=== PATIENT | male | born 1950 | race Caucasian/White ===

== ENCOUNTER → 2017-07-06 | Outpatient (CLI) | payer OTHER ==
[~2017-07-06] MED LIST: CIME-56 PO; CMD5 PO; OXYC80TA16 PO
--- NOTE | 2017-07-06 15:13 | DIAGNOSTIC IMAGING REPORT ---
CT LUNG SCREENING, LOW DOSE WITH COMPUTER-AIDED DETECTION (CAD) CLINICAL HISTORY: 67 years-old Male patient presents with history of tobacco abuse. Low-dose screening exam. COMPARISON STUDY: Portable chest radiograph 04/17/2009. CT DOSE: 69.09 mGycm TECHNIQUE: Low-dose helical CT was acquired without intravenous contrast from lung apices to bases and reconstructed at 2.5 mm every 2 mm. CAD was utilized for this study. A dose lowering technique was utilized adhering to the principles of ALARA. FINDINGS: No dominant thyroid nodule identified. No definite pathologic adenopathy of the chest. Calcified right hilar lymph nodes suggest prior granulomatous disease. Thoracic aorta is normal in course and caliber without aneurysm. Mild to moderate atherosclerotic plaquing of the aorta. Coronary arterial calcifications are seen within a three-vessel distribution. Aortic annular calcifications also noted. Moderate upper lobe predominant centrilobular emphysematous changes. To a lesser extent there are paraseptal emphysematous changes as well. Calcified granuloma of the lateral basal segment right lower lobe. Minimal dependent bibasilar atelectasis. Mild bilateral bronchial wall thickening suggests background bronchitis. Mild biapical pleural-parenchymal scarring. Central airways are patent. 6 mm pleural-based noncalcified solid pulmonary nodule is present within the right lower lobe on image 170 of series 3. No acute abnormality of the upper abdomen identified. Bones appear intact. There is mild age indeterminate anterior endplate wedging of the T7 vertebral body without associated retropulsion identified. IMPRESSION: 1. 6 mm pleural-based solid noncalcified pulmonary nodule of the right lower lobe. Follow-up guidelines are below. 2. Moderate centrilobular emphysema with bronchitis. 3. Mild age-indeterminate anterior endplate wedging of T7. 3. Evidence of prior granulomatous disease. Nodule 1 Category: 2 Nodule 1 Status: Baseline Nodule 1 Description: Solid Nodule 1 Lesion ID: 5 Nodule 1 Slice Number: 56 Nodule 1 Volume (mm3): 108 Nodule 1 [place] mm: 5.9 Nodule 1 [place] mm: 5.9 CAD FINDINGS: Overall Lung RADS Category: 2 Lung RADS Management Recommendation: Lung-RADS 2: Continue annual screening in 12 months. Lung RADS Follow Up Date: 2018-07-06 Lung RADS Nodule ID: 5 The above report was generated using voice recognition software. It may contain grammatical, syntax or spelling errors. Electronically signed by: Tevin Mullins M.D. 07/06/2017 3:11 PM Dictated Date/Time: 07/06/2017 2:52 PM
== END | disposition home or self-care (01) ==
LOC: C.CTS 13:40
PROVIDERS: ATTEND Internal Medicine
DX: Z87.891 Personal history of nicotine dependence (principal)

== ENCOUNTER 2021-08-26 18:43 | Inpatient (IN) ==
--- NOTE | 2021-08-26 19:09 | Emergency Department Note ---
Impression & Plan Weakness, Stroke-like symptoms, Slurred speech, Trouble swallowing ED Provider Note NAME: ELENA MILES AGE: 71 SEX: M : 1950 ARRIVES VIA: Walk-In INFORMANT: [Patient][family] ED PROVIDER(S): [Damian Alvarado MD] CHIEF COMPLAINT: Weakness HISTORY OF PRESENT ILLNESS: The patient is a 71-year-old male whose last known well time was last evening. This morning, he was weak and off balance and had a hard time walking. As the day has extended, he has gotten worse and has had some garbled and slurred speech. Patient denies any headache or shortness of breath. No fever. He states that he believes his speech is slurred because of the congestion in his throat. He states he is having a hard time swallowing although he is able to swallow saliva. There has been no one-sided weakness. It seems like this is weakness everywhere. He has not had recent cough or congestion. He is not vaccinated for COVID-19 or influenza. He does smoke tobacco. He was just started on amlodipine today. He had been to his doctor's office. REVIEW OF SYSTEMS: See HPI for pertinent positives and negatives. A total of ten systems were reviewed and were otherwise negative. PMHx/PSHx: See Below SOCIAL HISTORY: See Below. PHYSICAL EXAM: GENERAL: Patient is in no acute distress. HEENT: No acute trauma, normocephalic atraumatic, mucous membranes moist, no nasal congestion, no scleral icterus. No facial droop. No uvular edema, no throat erythema. NECK: No stridor, no adenopathy, no meningismus, trachea is midline. LUNGS: Clear to auscultation bilaterally when listening anterior no wheeze, no rhonchi, breath sounds equal. HEART: Without murmurs gallops or rubs, regular rate and rhythm. ABDOMEN: Soft, nontender, bowel sounds positive, no hernias, no peritonitis. EXTREMITIES: No cyanosis or edema, full range of motion of all the joints without pain or difficulty, no signs for acute trauma. NEUROLOGIC: Oriented x 3. The patient seemed to have a difficult time swallowing and his speech is a bit slurred. He does have some mild difficulty with left upper extremity cerebellar function. No extremity drift. SKIN: No rash, no jaundice, no diaphoresis. DIFFERENTIAL DIAGNOSIS: Infection, dehydration, metabolic abnormality, hypo/hyperglycemia, malignancy, food bolus, cervical soft tissue mass, COVID-19, influenza, electrolyte disturbance, anemia, hypoxia, cardiac sources, intracerebral event, toxicologic issues, stroke, TIA, as well as other pathologies. EMERGENCY DEPARTMENT COURSE/PROCEDURES: ECG: Indication was possible stroke. The ECG shows a normal sinus rhythm with some LVH. The rate is 69. There is some nonspecific ST change. No ST elevation. No PVCs. Potential old inferior infarct was noted. The QTc is 471. Continuous Cardiac Monitoring: An order was placed for continuous cardiac monitoring. The monitor shows a rate of 70 with normal sinus rhythm. Critical Care Note: I have personally spent 54 minutes of critical care time in the direct management of this patient. This includes bedside care, interpretation of diagnostic studies, and testing, discussion with consultants, patient, and family members, and other required patient management activities. This 54 minutes is in excess of all separately billable procedures. MEDICAL DECISION MAKING: There is a mild leukocytosis, this could be consistent with infection or the stress of his current situation. There is a normal hemoglobin and platelet count. No significant electrolyte abnormality or kidney failure. Lactic acid lev el is not elevated making sepsis less likely. No worrisome liver enzyme elevation. The patient appeared to be in a euthyroid state. Urinalysis does not show infection. Covid, influenza and RSV testing was negative. Chest film does not show pneumonia or CHF. Brain CT shows no acute bleed or mass-effect. Old strokes were seen. CT angio of the head and neck were performed. There was stenosis and plaque, no clot seen. On exam, the patient did have a little bit of cerebellar difficulty with the left upper extremity. His speech was thickened and he seemed to have a hard time swallowing. The patient was not a candidate for TPA as his symptoms have been ongoing all day, over 12 hours. The patient received IV saline, 500 cc. He was given IV hydralazine for his higher blood pressure. I spoke to the patient and his family. I do think further stroke work-up is warranted in the hospital. A stroke just not seen on CT could certainly explain his presentation today. I spoke with case management, the on-call hospitalist was consulted. Past Med/Surg History Medical History Duodenal ulcer History of CVA (cerebrovascular accident) Hypertension Hypothyroidism Surgical History H/O inguinal hernia repair H/O neck surgery Family History Sister Breast cancer Sister Breast cancer Denies family history of Ovarian cancer Prostate cancer Myocardial infarction Colorectal cancer Social History Smoking Status: Current every day smoker Tobacco Type: Cigarettes Age Started Using Tobacco: 8; packs per day: 1; Second Hand Exposure: No; Hx Alcohol Use: Yes (socially, rarely ) Hx Substance Use: No Preferred Language: Thai Visual Impairment: No Limitations Hearing Ability: Use of Hearing Aid marital status: Current Living Situation: Spouse current occupational status: employed current occupation: works at [employer] doing [employer] work Feels Safe at Home: Yes Childhood Exposure to Second-Hand Smoke: Yes Dental Care, Regularly: No Physical Activity Frequency: 3-4 Times per Week Seatbelt Use: always Sunscreen Use: No Allergies Allergies Allergy/AdvReac Type Severity Reaction Status Date / Time carbamazepine Allergy Unknown Unknown Verified 08/26/21 19:24 Home Meds Home Medications Medication Instructions Recorded Confirmed aspirin 500 mg tablet 500 mg PO BID PRN 08/26/21 08/26/21 Previous Rx's Medication Instructions Recorded amlodipine 5 mg tablet 5 mg PO DAILY #30 tab 08/26/21 Results & Data (ED) Vital Signs Vital Signs - 24 hr 08/26/21 18:44 08/26/21 19:03 08/26/21 19:07 Temperature 36.6 C Temperature Source Temporal Artery Scan Pulse Rate 70 Pulse Rate [Apical] 65 Respiratory Rate 18 18 Respiratory Effort / Characteristics Non-Labored Non-Labored Spontaneous Respiratory Depth Normal Normal Respiratory Pattern Regular Regular Blood Pressure 191/103 H Blood Pressure [Right Arm] 174/101 H Blood Pressure Mean 132 Blood Pressure Mean [Right Arm] 125 Blood Pressure Position [Right Arm] Semi-fowlers Pulse Oximetry 98 99 98 Oxygen Delivery Method Room Air Room Air Room Air Sepsis Recent Fever Within 48 Hours No Sepsis New/Unexplained Change in Mental Status No Sepsis Action Taken by Nursing No Action Required 08/26/21 19:45 08/26/21 21:04 Temperature Temperature Source Pulse Rate Pulse Rate [Apical] 65 68 Respiratory Rate 18 Respiratory Effort / Characteristics Non-Labored Spontaneous Respiratory Depth Normal Respiratory Pattern Regular Blood Pressure Blood Pressure [Right Arm] 171/90 H 174/90 H Blood Pressure Mean Blood Pressure Mean [Right Arm] 117 118 Blood Pressure Position [Right Arm] Semi-fowlers Pulse Oximetry 97 98 Oxygen Delivery Method Room Air Room Air Sepsis Recent Fever Within 48 Hours Sepsis New/Unexplained Change in Mental Status Sepsis Action Taken by Retirement Medications Current Medication List: was personally reviewed by me Laboratory Data Attestation: I reviewed the patient's lab results. Result diagrams: 08/26/21 19:03 08/26/21 19:03 Lab Results 08/26/21 08/26/21 08/26/21 Range/Units 19:03 19:03 19:10 WBC 13.11 H (4.8-10.8) K/uL RBC 5.17 (4.7-6.1) M/uL Hgb 15.5 (14.0-18.0) g/dL POC Hgb 16.0 (14.0-18.0) g/dl Hct 46.8 (42-52) % POC Hct 47 (42-52) % MCV 90.5 (80-100) fL MCH 30.0 (25-34) pg MCHC 33.1 (32-36) g/dL RDW Std Deviation 46.3 (36.4-46.3) fL RDW Coeff of Heidi 13.8 (11.5-14.5) % Plt Count 400 (130-400) K/uL MPV 11.5 H (7.4-10.4) fL Immature Gran % (Auto) 0.2 % Neut % (Auto) 74.5 % Lymph % (Auto) 11.4 % [place] % (Auto) 9.8 % Eos % (Auto) 3.5 % Baso % (Auto) 0.6 % Neut # (Auto) 9.77 H (1.4-6.5) K/uL Lymph # (Auto) 1.49 (1.2-3.4) K/uL [place] # (Auto) 1.28 H (0.11-0.59) K/uL Eos # (Auto) 0.46 (0-0.5) K/uL Baso # (Auto) 0.08 (0-0.2) K/uL Immature Gran # (Auto) 0.03 H (0.00-0.02) K/uL POC Sodium 141 (135-144) mmol/L Sodium 139 (136-145) mmol/L POC Potassium 3.6 (3.3-5.0) mmol/L Potassium 3.5 (3.5-5.1) mmol/L POC Chloride 102 (101-112) mmol/L Chloride 107 (98-107) mmol/L Carbon Dioxide 27 (21-32) mmol/L POC Total CO2 24 (24-31) mmol/L Anion Gap 5.0 (3-11) POC Anion Gap 19.0 (16-25) mmol/L POC BUN 14 (7-18) mg/dl BUN 15 (7-18) mg/dl Creatinine 0.92 (0.6-1.4) mg/dl POC Creatinine 0.8 (0.6-1.3) mg/dl Est Cr Clr Drug Dosing 72.8 ml/min Est GFR ( Amer) 96.0 ml/min Est GFR (Non-Af Amer) 82.8 ml/min BUN/Creatinine Ratio 15.8 (10-20) Glucose 113 H (70-99) mg/dl POC Glucose (other) 115 H (70-99) mg/dl Lactate (0.4-2.0) mmol/L Calcium 9.0 (8.5-10.1) mg/dl POC Ioniz Calcium Robert 1.15 (1.12-1.32) mmol/l Total Bilirubin 0.9 (0.2-1) mg/dl AST 16 (15-37) U/L ALT 22 (12-78) Alkaline Phosphatase 136 H (45-117) U/L Troponin I < 0.015 (0-0.045) ng/ml Total Protein 7.7 (6.4-8.2) gm/dl Albumin 3.9 (3.4-5.0) gm/dl Globulin 3.8 (2.5-4.0) gm/dl Albumin/Globulin Ratio 1.0 (0.9-2) TSH 1.280 (0.300-4.500) uIu/ml Urine Color Urine Appearance (Clear) Urine pH (4.5-7.5) Ur Specific [place] (1.000-1.030) Urine Protein (Negative) Urine Glucose (UA) (Negative) Urine Ketones (Negative) Urine Blood (Negative) Urine Nitrite (Negative) Urine Bilirubin (Negative) Urine Urobilinogen (Negative) Ur Leukocyte Esterase (Negative) SARS-CoV-2 (PCR) (Negative) Influenza Type A (PCR) (Neg) Influenza Type B (PCR) (Neg) RSV (RT-PCR) (Neg) 08/26/21 08/26/21 08/26/21 Range/Units 19:11 19:47 19:55 WBC (4.8-10.8) K/uL RBC (4.7-6.1) M/uL Hgb (14.0-18.0) g/dL POC Hgb (14.0-18.0) g/dl Hct (42-52) % POC Hct (42-52) % MCV (80-100) fL MCH (25-34) pg MCHC (32-36) g/dL RDW Std Deviation (36.4-46.3) fL RDW Coeff of Heidi (11.5-14.5) % Plt Count (130-400) K/uL MPV (7.4-10.4) fL Immature Gran % (Auto) % Neut % (Auto) % Lymph % (Auto) % [place] % (Auto) % Eos % (Auto) % Baso % (Auto) % Neut # (Auto) (1.4-6.5) K/uL Lymph # (Auto) (1.2-3.4) K/uL [place] # (Auto) (0.11-0.59) K/uL Eos # (Auto) (0-0.5) K/uL Baso # (Auto) (0-0.2) K/uL Immature Gran # (Auto) (0.00-0.02) K/uL POC Sodium (135-144) mmol/L Sodium (136-145) mmol/L POC Potassium (3.3-5.0) mmol/L Potassium (3.5-5.1) mmol/L POC Chloride (101-112) mmol/L Chloride (98-107) mmol/L Carbon Dioxide (21-32) mmol/L POC Total CO2 (24-31) mmol/L Anion Gap (3-11) POC Anion Gap (16-25) mmol/L POC BUN (7-18) mg/dl BUN (7-18) mg/dl Creatinine (0.6-1.4) mg/dl POC Creatinine (0.6-1.3) mg/dl Est Cr Clr Drug Dosing ml/min Est GFR ( Amer) ml/min Est GFR (Non-Af Amer) ml/min BUN/Creatinine Ratio (10-20) Glucose (70-99) mg/dl POC Glucose (other) (70-99) mg/dl Lactate 0.7 (0.4-2.0) mmol/L Calcium (8.5-10.1) mg/dl POC Ioniz Calcium Robert (1.12-1.32) mmol/l Total Bilirubin (0.2-1) mg/dl AST (15-37) U/L ALT (12-78) Alkaline Phosphatase (45-117) U/L Troponin I (0-0.045) ng/ml Total Protein (6.4-8.2) gm/dl Albumin (3.4-5.0) gm/dl Globulin (2.5-4.0) gm/dl Albumin/Globulin Ratio (0.9-2) TSH (0.300-4.500) uIu/ml Urine Color Yellow Urine Appearance Clear (Clear) Urine pH 7.5 (4.5-7.5) Ur Specific [place] 1.025 (1.000-1.030) Urine Protein Negative (Negative) Urine Glucose (UA) Negative (Negative) Urine Ketones Negative (Negative) Urine Blood Negative (Negative) Urine Nitrite Negative (Negative) Urine Bilirubin Negative (Negative) Urine Urobilinogen Negative (Negative) Ur Leukocyte Esterase Negative (Negative) SARS-CoV-2 (PCR) NEGATIVE (Negative) Influenza Type A (PCR) Negative (Neg) Influenza Type B (PCR) Negative (Neg) RSV (RT-PCR) Negative (Neg) Administered Medications Discontinued Medications Hydralazine HCl (Hydralazine Hcl 20 Mg/Ml Vial) 5 mg IV NOW STA Stop: 08/26/21 19:12 Last Admin: 08/26/21 19:31 Dose: 5 mg Documented by: [id number] Sodium Chloride (Nss) 500 mls @ 999 mls/hr IV .Q31M SATINDER Stop: 08/26/21 19:45 Last Infusion: 08/26/21 20:31 Dose: 0 mls/hr Documented by: [id number] Admin: 08/26/21 19:31 Dose: 999 mls/hr Documented by: [id number] Ioversol (Optiray 320 125ml) 117 ml IV ONCE ONE Stop: 08/26/21 19:23 Last Admin: 08/26/21 19:24 Dose: 117 ml Documented by: [id number] Imaging Data Radiologist's Impression: Chest X-Ray 08/26/21 19:03 XR chest 1V portable HISTORY: 71 years-old Male weakness acute weakness COMPARISON: CTA had and neck of same day, head CT 04/17/2009 TECHNIQUE: Portable AP view of the chest FINDINGS: Cardiac silhouette is enlarged. Emphysema with chronic interstitial coarsening. No pneumothorax, pleural effusion, airspace consolidation or overt pulmonary edema. Degenerative changes of the shoulders and spine. IMPRESSION: Emphysema without acute process. ACT 112: Negative or not required by law. The above report was generated using voice recognition software. It may contain grammatical, syntax or spelling errors. Electronically signed by: Sebastian Mullins M.D. 08/26/2021 8:[address] 08/26/21 19:03 CT head/brain wo con CLINICAL HISTORY: 71 years-old Male with weakness, speech slurred. Acutely altered mental status with weakness TECHNIQUE: Multiple axial CT images of the head were obtained without contrast. A dose lowering technique was utilized adhering to the principles of ALARA. COMPARISON: CTA head and neck of same day, head CT 04/28/2009 FINDINGS: No acute intracranial hemorrhage, midline shift, intracranial mass, hydrocephalus, territorial ischemia or abnormal extra-axial collection. Mild involutional changes. Cerebral vascular calcifications. Chronic appearing infarcts of the left caudate head and left lentiform nucleus. Tiny subcentimeter age-indeterminate lacunar infarcts of the right basal ganglia. White matter hypodensities suggest chronic microvascular ischemic disease. Chronic left cerebellar infarct. The calvarium is intact. The paranasal sinuses, mastoid air cells, and middle ear cavities are clear. IMPRESSION: 1. No acute intracranial hemorrhage, midline shift or acute territorial infarct. 2. Chronic appearing lacunar infarcts of the left basal ganglia with a few subcentimeter age-indeterminate lacunar infarcts of the right basal ganglia. These findings are new from the 2008 comparison. 3. Chronic left cerebellar infarct. ACT 112: Negative or not required by law. The above report was generated using voice recognition software. It may contain grammatical, syntax or spelling errors. Electronically signed by: Sebastian Mullins M.D. 08/26/2021 7:53 PM Head CTA 08/26/21 19:03 CT angio neck with con, CT angio head w con CLINICAL HISTORY: 71 years-old Male with stroke symptoms. Acute strokelike symptoms COMPARISON STUDY: Head CT of same day TECHNIQUE: Following the IV administration of 117 mL of Optiray, CT angiogram of the head and neck was performed from the aortic arch to the skull apex. Images are reviewed in the axial, sagittal, and coronal planes. 3-D MIPS images are created and assessed. IV contrast was administered without complication. All measurements were calculated based on NASCET criteria. A dose lowering technique was utilized adhering to the principles of ALARA. CT DOSE: 1150.97 mGy.cm FINDINGS: Three-vessel morphology of the thoracic aortic arch with moderate atherosc lerotic plaque. Patent innominate and imaged subclavian arteries. Atheromatous plaque of the common carotid arteries without high-grade stenosis. Extensive atherosclerotic plaque of the right carotid bulb results in less than 50% stenosis. 70% luminal narrowing of the supraclinoid right ICA on image 395 secondary to prominent calcified plaque. Extensive atherosclerotic plaque of the left carotid bulb and proximal left ICA results in 60% luminal narrowing on image 194. Moderate luminal narrowing of the cavernous segment left ICA secondary to calcified plaque. Mild multifocal luminal narrowing of the middle cerebral arteries. Anterior cerebral arteries are patent. The right vertebral artery is dominant. Multifocal high-grade stenosis involves the V4 segment of the right vertebral artery, most pronounced distally just proximal to the basilar artery. The V1 and V2 segments of the left vertebral artery are suboptimally visualized secondary to opacified adjacent venous structures. Moderate luminal narrowing of the V2 segment the level of C6 on image 151 with high-grade stenosis at the level of C3-C4. There is irregularity of the distal V2 segment left vertebral artery extending into the C3 segment with diminished flow. There is occlusion of the distal V3 and V4 segments. Multifocal high-grade stenoses of the basilar and posterior cerebral arteries. Distal aspect of the right posterior cerebral arteries difficult to visualize. The cerebral venous sinuses are patent. There is no abnormal intracranial enhancement. Craniotomy changes of the right occiput. Chronic infarct of the left cerebellar hemisphere. Emphysema. No pneumothorax. Medial deviation of the left vocal fold without discrete mass identified. Degenerative changes of the cervical spine. Developmentally bony fusion involves the posterior arch of C1. IMPRESSION: 1. Extensive atherosclerotic plaque of the carotid bulbs results in less than 50% stenosis on the right with approximately 60% luminal narrowing of the proximal cervical segment left ICA. 2. 70% stenosis of the supraclinoid segment of the right ICA. 3. Multifocal high-grade stenoses of the bilateral vertebral arteries, basilar and posterior cerebral arteries. 4. Irregularity with diminished flow of the distal V2 and V3 segments of the left vertebral artery with occlusion of the mid to distal V3 and V4 segments. Underlying arterial dissection would be difficult to exclude. These findings are age-indeterminate. 5. Emphysema. ACT 112: Negative or not required by law. The above report was generated using voice recognition software. It may contain grammatical, syntax or spelling errors. Electronically signed by: Sebastian Mullins M.D. 08/26/2021 8:20 PM Neck CTA 08/26/21 19:03 CT angio neck with con, CT angio head w con CLINICAL HISTORY: 71 years-old Male with stroke symptoms. Acute strokelike symptoms COMPARISON STUDY: Head CT of same day TECHNIQUE: Following the IV administration of 117 mL of Optiray, CT angiogram of the head and neck was performed from the aortic arch to the skull apex. Images are reviewed in the axial, sagittal, and coronal planes. 3-D MIPS images are created and assessed. IV contrast was administered without complication. All measurements were calculated based on NASCET criteria. A dose lowering technique was utilized adhering to the principles of ALARA. CT DOSE: 1150.97 mGy.cm FINDINGS: Three-vessel morphology of the thoracic aortic arch with moderate atherosclerotic plaque. Patent innominate and imaged subclavian arteries. Atheromatous plaque of the common carotid arteries without high-grade stenosis. Extensive atherosclerotic plaque of the right carotid bulb results in less than 50% stenosis. 70% luminal narrowing of the supraclinoid right ICA on image 395 secondary to prominent calcified plaque. Extensive atherosclerotic plaque of the left carotid bulb and proximal left ICA results in 60% luminal narrowing on image 194. Moderate luminal narrowing of the cavernous segment left ICA secondary to calcified plaque. Mild multifocal luminal narrowing of the middle cerebral arteries. Anterior cerebral arteries are patent. The right vertebral artery is dominant. Multifocal high-grade stenosis involves the V4 segment of the right vertebral artery, most pronounced distally just proximal to the basilar artery. The V1 and V2 segments of the left vertebral artery are suboptimally visualized secondary to opacified adjacent venous structures. Moderate luminal narrowing of the V2 segment the level of C6 on im age 89 with high-grade stenosis at the level of C3-C4. There is irregularity of the distal V2 segment left vertebral artery extending into the C3 segment with diminished flow. There is occlusion of the distal V3 and V4 segments. Multifocal high-grade stenoses of the basilar and posterior cerebral arteries. Distal aspect of the right posterior cerebral arteries difficult to visualize. The cerebral venous sinuses are patent. There is no abnormal intracranial enhancement. Craniotomy changes of the right occiput. Chronic infarct of the left cerebellar hemisphere. Emphysema. No pneumothorax. Medial deviation of the left vocal fold without discrete mass identified. Degenerative changes of the cervical spine. Developmentally bony fusion involves the posterior arch of C1. IMPRESSION: 1. Extensive atherosclerotic plaque of the carotid bulbs results in less than 50% stenosis on the right with approximately 60% luminal narrowing of the proximal cervical segment left ICA. 2. 70% stenosis of the supraclinoid segment of the right ICA. 3. Multifocal high-grade stenoses of the bilateral vertebral arteries, basilar and posterior cerebral arteries. 4. Irregularity with diminished flow of the distal V2 and V3 segments of the left vertebral artery with occlusion of the mid to distal V3 and V4 segments. Underlying arterial dissection would be difficult to exclude. These findings are age-indeterminate. 5. Emphysema. ACT 112: Negative or not required by law. The above report was generated using voice recognition software. It may contain grammatical, syntax or spelling errors. Electronically signed by: Sebastian Mullins M.D. 08/26/2021 8:20 PM Discharge Plan Visit Data Chief Complaint: Stroke Alert Stated Complaint: STROKE SYMPTOMS ED Provider: Damian Alvarado Discharge Problem: Weakness, Stroke-like symptoms, Slurred speech, Trouble swallowing Patient Disposition: Admitted As Inpatient Condition: Fair
[2021-08-26] MEDS ORDERED: hydrALAZINE HCL 20 MG/ML VIAL IV STA (19:11)
[2021-08-26] MEDS ORDERED: SODIUM CHLORIDE 0.9% 500 ML IV SCH (19:15)
[2021-08-26 19:22] LABS: iSTAT Creatinine 0.8 mg/dl (0.6-1.3); iSTAT Ionized Calcium 1.15 mmol/l (1.12-1.32); iSTAT Potassium 3.6 mmol/L (3.3-5.0)
[2021-08-26] MEDS ORDERED: OPTIRAY 320 125ml IV ONE (19:22)
[2021-08-26 19:28] LABS: Basophils # (auto) 0.08 K/uL (0-0.2); Basophils % (auto) 0.6 %; Eosinophils # (auto) 0.46 K/uL (0-0.5); Eosinophils % (auto) 3.5 %; Hematocrit (blood only) 46.8 % (42-52); Hemoglobin 15.5 g/dL (14.0-18.0); Immature Granulocytes # (auto) 0.03 K/uL (0.00-0.02); Immature Granulocytes % (auto) 0.2 %; Lymphocytes # (auto) 1.49 K/uL (1.2-3.4); Lymphocytes % (auto) 11.4 %; Mean Corpuscular Hgb Conc 33.1 g/dL (32-36); Mean Corpuscular Volume 90.5 fL (80-100); Mean Platelet Volume 11.5 fL (7.4-10.4); Monocytes # (auto) 1.28 K/uL (0.11-0.59); Monocytes % (auto) 9.8 %; Neutrophils # (auto) 9.77 K/uL (1.4-6.5); Neutrophils % (auto) 74.5 %; Platelet Count 400 K/uL (130-400); RDW Coefficient of Variation 13.8 % (11.5-14.5); RDW Standard Deviation 46.3 fL (36.4-46.3); Red Blood Count 5.17 M/uL (4.7-6.1); White Blood Count 13.11 K/uL (4.8-10.8)
[2021-08-26 19:40] LABS: Alanine Aminotransferase 22 (12-78); Albumin Level 3.9 gm/dl (3.4-5.0); Aspartate Aminotransferase 16 U/L (15-37); BUN Creatinine Ratio 15.8 (10-20); Blood Urea Nitrogen 15 mg/dl (7-18); Carbon Dioxide 27 mmol/L (21-32); Chloride 107 mmol/L (98-107); Creatinine Clr Calc Pharmacy 72.8 ml/min; Est GFR (Non-African American) 82.8 ml/min; Glucose 113 mg/dl (70-99); Potassium 3.5 mmol/L (3.5-5.1); Sodium 139 mmol/L (136-145)
[2021-08-26 19:51] LABS: Alkaline Phosphatase 136 U/L (45-117); Bilirubin,Total 0.9 mg/dl (0.2-1); Globulin 3.8 gm/dl (2.5-4.0); Total Protein 7.7 gm/dl (6.4-8.2); Troponin I < 0.015 ng/ml (0-0.045)
--- NOTE | 2021-08-26 19:54 | CT Scan Report ---
CT head/brain wo con CLINICAL HISTORY: 71 years-old Male with weakness, speech slurred. Acutely altered mental status wit h weakness TECHNIQUE: Multiple axial CT images of the head were obtained without contrast. A dose lowering tech nique was utilized adhering to the principles of ALARA. COMPARISON: CTA head and neck of same day, head CT 04/28/2009 FINDINGS: No acute intracranial hemorrhage, midline shift, intracranial mass, hydrocephalus, territorial ischem ia or abnormal extra-axial collection. Mild involutional changes. Cerebral vascular calcifications. C hronic appearing infarcts of the left caudate head and left lentiform nucleus. Tiny subcentimeter age -indeterminate lacunar infarcts of the right basal ganglia. White matter hypodensities suggest chroni c microvascular ischemic disease. Chronic left cerebellar infarct. The calvarium is intact. The paranasal sinuses, mastoid air cells, and middle ear cavities are clear . IMPRESSION: 1. No acute intracranial hemorrhage, midline shift or acute territorial infarct. 2. Chronic appearing lacunar infarcts of the left basal ganglia with a few subcentimeter age-indeterm inate lacunar infarcts of the right basal ganglia. These findings are new from the 2008 comparison. 3. Chronic left cerebellar infarct. ACT 112: Negative or not required by law. The above report was generated using voice recognition software. It may contain grammatical, syntax o r spelling errors. Electronically signed by: Sebastian Mullins M.D. 08/26/2021 7:53 PM
[2021-08-26 20:12] LABS: Influenza A virus by PCR Negative (Neg); Influenza B virus by PCR Negative (Neg); RSV by PCR Negative (Neg); SARS CoV2 RNA(COVID-19) InHosp NEGATIVE (Negative)
[2021-08-26 20:20] LABS: Appearance Urine Clear (Clear); Bilirubin Urine Negative (Negative); Blood Urine Negative (Negative); Color Urine Yellow; Glucose Urine UA Negative (Negative); Ketones Urine Negative (Negative); Leukocyte Esterase Urine Negative (Negative); Nitrite Urine Negative (Negative); Protein Urine Negative (Negative); Specific Gravity Urine 1.025 (1.000-1.030); Urobilinogen Urine Negative (Negative); pH Urine 7.5 (4.5-7.5)
--- NOTE | 2021-08-26 20:21 | CT Scan Report ---
CT angio neck with con, CT angio head w con CLINICAL HISTORY: 71 years-old Male with stroke symptoms. Acute strokelike symptoms COMPARISON STUDY: Head CT of same day TECHNIQUE: Following the IV administration of 117 mL of Optiray, CT angiogram of the head and neck wa s performed from the aortic arch to the skull apex. Images are reviewed in the axial, sagittal, and c oronal planes. 3-D MIPS images are created and assessed. IV contrast was administered without complic ation. All measurements were calculated based on NASCET criteria. A dose lowering technique was util ized adhering to the principles of ALARA. CT DOSE: 1150.97 mGy.cm FINDINGS: Three-vessel morphology of the thoracic aortic arch with moderate atherosclerotic plaque. Patent inno minate and imaged subclavian arteries. Atheromatous plaque of the common carotid arteries without hig h-grade stenosis. Extensive atherosclerotic plaque of the right carotid bulb results in less than 50% stenosis. 70% luminal narrowing of the supraclinoid right ICA on image 395 secondary to prominent ca lcified plaque. Extensive atherosclerotic plaque of the left carotid bulb and proximal left ICA resul ts in 60% luminal narrowing on image 194. Moderate luminal narrowing of the cavernous segment left IC A secondary to calcified plaque. Mild multifocal luminal narrowing of the middle cerebral arteries. A nterior cerebral arteries are patent. The right vertebral artery is dominant. Multifocal high-grade stenosis involves the V4 segment of the right vertebral artery, most pronounced distally just proximal to the basilar artery. The V1 and V2 segments of the left vertebral artery are suboptimally visualized secondary to opacified adjacent zaynab ous structures. Moderate luminal narrowing of the V2 segment the level of C6 on image 151 with high-g rade stenosis at the level of C3-C4. There is irregularity of the distal V2 segment left vertebral ar aleksandr extending into the C3 segment with diminished flow. There is occlusion of the distal V3 and V4 s egments. Multifocal high-grade stenoses of the basilar and posterior cerebral arteries. Distal aspect of the right posterior cerebral arteries difficult to visualize. The cerebral venous sinuses are pat ent. There is no abnormal intracranial enhancement. Craniotomy changes of the right occiput. Chronic infarct of the left cerebellar hemisphere. Emphysema . No pneumothorax. Medial deviation of the left vocal fold without discrete mass identified. Degenera tive changes of the cervical spine. Developmentally bony fusion involves the posterior arch of C1. IMPRESSION: 1. Extensive atherosclerotic plaque of the carotid bulbs results in less than 50% stenosis on the rig ht with approximately 60% luminal narrowing of the proximal cervical segment left ICA. 2. 70% stenosis of the supraclinoid segment of the right ICA. 3. Multifocal high-grade stenoses of the bilateral vertebral arteries, basilar and posterior cerebral arteries. 4. Irregularity with diminished flow of the distal V2 and V3 segments of the left vertebral artery wi th occlusion of the mid to distal V3 and V4 segments. Underlying arterial dissection would be difficu lt to exclude. These findings are age-indeterminate. 5. Emphysema. ACT 112: Negative or not required by law. The above report was generated using voice recognition software. It may contain grammatical, syntax o r spelling errors. Electronically signed by: Sebastian Mullins M.D. 08/26/2021 8:20 PM
--- NOTE | 2021-08-26 20:23 | XRay Report ---
XR chest 1V portable HISTORY: 71 years-old Male weakness acute weakness COMPARISON: CTA had and neck of same day, head CT 04/17/2009 TECHNIQUE: Portable AP view of the chest FINDINGS: Cardiac silhouette is enlarged. Emphysema with chronic interstitial coarsening. No pneumothorax, pleu ral effusion, airspace consolidation or overt pulmonary edema. Degenerative changes of the shoulders and spine. IMPRESSION: Emphysema without acute process. ACT 112: Negative or not required by law. The above report was generated using voice recognition software. It may contain grammatical, syntax o r spelling errors. Electronically signed by: Sebastian Mullins M.D. 08/26/2021 8:21 PM
--- NOTE | 2021-08-26 20:40 | History & Physical Report ---
Date of Service August 26, 2021 Assessment & Plan (1) Stroke-like symptoms: Plan: 71 yo M with hx multiple CVAs brought to ER and admitted for concern for new CVA. Stroke-like symptoms - outside of window for tpA given last known well >12 hours prior, no exact onset of sx - CTA neck/head showing severe stenosis of multiple arteries as above, multiple prior infarcts, no acute infarct - lipid, a1c pending. extensive smoking hx - not on daily antiplatelet, statin. --> Started on asa 81, atorvastatin 80 mg on admission. - speech consult, pt, ot, - neuro checks - neuro consult for extensive stroke hx -- query regarding initiating asa + plavix given high risk for CVA - permissive HTN - MRI in AM HTN - started on amlodipine 5 mg daily earlier today - allow permissive HTN for first 24 hours of admission - will likely need additional medications for control going forward DVT ppx: heparin sq Q12 FEN/GI: NPO pending speech eval Code Status: DNR/DNI Dispo: Med/Tele. may require short term rehab pending PT -- lives at home with who is also frail/ill (2) Slurred speech: (3) Trouble swallowing: (4) Hypothyroidism: (5) Hypertension: (6) History of CVA (cerebrovascular accident): (7) COPD (chronic obstructive pulmonary disease): History of Present Illness Primary Care Provider: Freddy Huizar MD 71 yo M with hx multiple CVAs, COPD, BPH who presents to ER with his son for acute onset trouble swallowing and ambulatory dysfunction. last known well was the night of 08/25. States he had trouble swallowing solid food in the AM, but didn't have any issue with soft foods. Also attests to trouble swallowing liquids. Has some pain with swallowing. Also concerned about new trouble walking. Says he's had issues with walking due to foot injuries, but now has trouble moving his legs to walk properly. Denies focal weakness, sensory loss, numbness/tingling. Unsure who he previously saw for neurology. Per med rec, he was taking 500 mg Aspirin daily after his foot surgery, but says he hasn't taken it for about a month. Denies any personal hx of HLD, Dm2. recently dx'd with HTN and started on amlodipine 5 mg today. 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 Allergies Allergy/AdvReac Type Severity Reaction Status Date / Time carbamazepine Allergy Unknown Unknown Verified 08/26/21 19:24 Home Medications Medication Instructions Recorded Confirmed Type amlodipine 5 mg tablet 5 mg PO DAILY #30 tab 08/26/21 08/26/21 Rx aspirin 500 mg tablet 500 mg PO BID PRN 08/26/21 08/26/21 History Past Med/Surg History Medical History Duodenal ulcer History of CVA (cerebrovascular accident) Hypertension Hypothyroidism Surgical History H/O inguinal hernia repair H/O neck surgery Family History Sister Breast cancer Sister Breast cancer Denies family history of Ovarian cancer Prostate cancer Myocardial infarction Colorectal cancer Social History Smoking Status: Current every day smoker Tobacco Type: Cigarettes Age Started Using Tobacco: 8; packs per day: 1; Second Hand Exposure: No; Hx Alcohol Use: No Hx Substance Use: No Preferred Language: Albanian Visual Impairment: No Limitations Hearing Ability: Use of Hearing Aid Beliefs That Will Affect Care: None marital status: Current Living Situation: Spouse current occupational status: employed current occupation: works at [employer] doing [employer] work Feels Safe at Home: Yes Safety Concerns: Feels Safe At This Time Childhood Exposure to Second-Hand Smoke: Yes Dental Care, Regularly: No Physical Activity Frequency: 3-4 Times per Week Seatbelt Use: always Sunscreen Use: No Assistive Devices: None Review of Systems Review of Systems: All systems reviewed & are unremarkable except as noted in Subjective Physical Exam Physical Exam: Constitutional: in NAD, sitting up in bed Face: R facial droop (chronic) Eyes: EOMI, pupils equal and reactive bilaterally, no scleral icterus, no nystagmus Cardiac: RRR, no murmurs, gallops or rubs. Normal S1, S2 Pulm: CTA BL, no wheezes, rhonchi, crackles or rubs, moving air well throughout both lungs Abd: soft, nontender, nondistended, normal bowel sounds, no rebound or guarding Extremities: 2+ peripheral pulses, no edema Neuro: 5/5 strength in upper and lower extremities, no sensory loss, a& ox3 Results & Data Results & Data ([facility]) Vital Signs (Past 12 Hours) Vital Signs Temp Pulse Pulse Resp BP BP Pulse Ox 08/26/21 19:45 65 18 171/90 H 97 08/26/21 19:07 65 18 174/101 H 98 08/26/21 19:03 99 08/26/21 18:44 36.6 C 70 18 191/103 H 98 Laboratory Results Laboratory Results WBC 13.11 K/uL (4.8-10.8) H 08/26/21 19:03 RBC 5.17 M/uL (4.7-6.1) 08/26/21 19:03 Hgb 15.5 g/dL (14.0-18.0) 08/26/21 19:03 POC Hgb 16.0 g/dl (14.0-18.0) 08/26/21 19:10 Hct 46.8 % (42-52) 08/26/21 19:03 POC Hct 47 % (42-52) 08/26/21 19:10 MCV 90.5 fL (80-100) 08/26/21 19:03 MCH 30.0 pg (25-34) 08/26/21 19:03 MCHC 33.1 g/dL (32-36) 08/26/21 19:03 RDW Std Deviation 46.3 fL (36.4-46.3) 08/26/21 19:03 RDW Coeff of Heidi 13.8 % (11.5-14.5) 08/26/21 19:03 Plt Count 400 K/uL (130-400) 08/26/21 19:03 MPV 11.5 fL (7.4-10.4) H 08/26/21 19:03 Immature Gran % (Auto) 0.2 % 08/26/21 19:03 Neut % (Auto) 74.5 % 08/26/21 19:03 Lymph % (Auto) 11.4 % 08/26/21 19:03 [place] % (Auto) 9.8 % 08/26/21 19:03 Eos % (Auto) 3.5 % 08/26/21 19:03 Baso % (Auto) 0.6 % 08/26/21 19:03 Neut # (Auto) 9.77 K/uL (1.4-6.5) H 08/26/21 19:03 Lymph # (Auto) 1.49 K/uL (1.2-3.4) 08/26/21 19:03 [place] # (Auto) 1.28 K/uL (0.11-0.59) H 08/26/21 19:03 Eos # (Auto) 0.46 K/uL (0-0.5) 08/26/21 19:03 Baso # (Auto) 0.08 K/uL (0-0.2) 08/26/21 19:03 Immature Gran # (Auto) 0.03 K/uL (0.00-0.02) H 08/26/21 19:03 POC Sodium 141 mmol/L (135-144) 08/26/21 19:10 Sodium 139 mmol/L (136-145) 08/26/21 19:03 POC Potassium 3.6 mmol/L (3.3-5.0) 08/26/21 19:10 Potassium 3.5 mmol/L (3.5-5.1) 08/26/21 19:03 POC Chloride 102 mmol/L (101-112) 08/26/21 19:10 Chloride 107 mmol/L (98-107) 08/26/21 19:03 Carbon Dioxide 27 mmol/L (21-32) 08/26/21 19:03 POC Total CO2 24 mmol/L (24-31) 08/26/21 19:10 Anion Gap 5.0 (3-11) 08/26/21 19:03 POC Anion Gap 19.0 mmol/L (16-25) 08/26/21 19:10 POC BUN 14 mg/dl (7-18) 08/26/21 19:10 BUN 15 mg/dl (7-18) 08/26/21 19:03 Creatinine 0.92 mg/dl (0.6-1.4) 08/26/21 19:03 POC Creatinine 0.8 mg/dl (0.6-1.3) 08/26/21 19:10 Est Cr Clr Drug Dosing 72.8 ml/min 08/26/21 19:03 Est GFR ( Amer) 96.0 ml/min 08/26/21 19:03 Est GFR (Non-Af Amer) 82.8 ml/min 08/26/21 19:03 BUN/Creatinine Ratio 15.8 (10-20) 08/26/21 19:03 Glucose 113 mg/dl (70-99) H 08/26/21 19:03 POC Glucose (other) 115 mg/dl (70-99) H 08/26/21 19:10 Lactate 0.7 mmol/L (0.4-2.0) 08/26/21 19:47 Calcium 9.0 mg/dl (8.5-10.1) 08/26/21 19:03 POC Ioniz Calcium Robert 1.15 mmol/l (1.12-1.32) 08/26/21 19:10 Total Bilirubin 0.9 mg/dl (0.2-1) 08/26/21 19:03 AST 16 U/L (15-37) 08/26/21 19:03 ALT 22 (12-78) 08/26/21 19:03 Alkaline Phosphatase 136 U/L (45-117) H 08/26/21 19:03 Troponin I < 0.015 ng/ml (0-0.045) 08/26/21 19:03 Total Protein 7.7 gm/dl (6.4-8.2) 08/26/21 19:03 Albumin 3.9 gm/dl (3.4-5.0) 08/26/21 19:03 Globulin 3.8 gm/dl (2.5-4.0) 08/26/21 19:03 Albumin/Globulin Ratio 1.0 (0.9-2) 08/26/21 19:03 TSH 1.280 uIu/ml (0.300-4.500) 08/26/21 19:03 Urine Color Yellow 08/26/21: Urine Appearance Clear (Clear) 08/26/21: Urine pH 7.5 (4.5-7.5) 08/26/21: Ur Specific Disney 1.025 (1.000-1.030) 08/26/21: Urine Protein Negative (Negative) 08/26/21: Urine Glucose (UA) Negative (Negative) 12/10/21 19:55 Urine Ketones Negative (Negative) 08/26/21 19:55 Urine Blood Negative (Negative) 08/26/21 19:55 Urine Nitrite Negative (Negative) 08/26/21 19:55 Urine Bilirubin Negative (Negative) 08/26/21 19:55 Urine Urobilinogen Negative (Negative) 08/26/21 19:55 Ur Leukocyte Esterase Negative (Negative) 08/26/21 19:55 SARS-CoV-2 (PCR) NEGATIVE (Negative) 08/26/21 19:11 Influenza Type A (PCR) Negative (Neg) 08/26/21 19:11 Influenza Type B (PCR) Negative (Neg) 08/26/21 19:11 RSV (RT-PCR) Negative (Neg) 08/26/21 19:11 Impressions Chest X-Ray 08/26/21 19:03 XR chest 1V portable HISTORY: 71 years-old Male weakness acute weakness COMPARISON: CTA had and neck of same day, head CT 04/17/2009 TECHNIQUE: Portable AP view of the chest FINDINGS: Cardiac silhouette is enlarged. Emphysema with chronic interstitial coarsening. No pneumothorax, pleural effusion, airspace consolidation or overt pulmonary edema. Degenerative changes of the shoulders and spine. IMPRESSION: Emphysema without acute process. ACT 112: Negative or not required by law. The above report was generated using voice recognition software. It may contain grammatical, syntax or spelling errors. Electronically signed by: Sebastian Mullins M.D. 08/26/2021 8:[address] 08/26/21 19:03 CT head/brain wo con CLINICAL HISTORY: 71 years-old Male with weakness, speech slurred. Acutely altered mental status with weakness TECHNIQUE: Multiple axial CT images of the head were obtained without contrast. A dose lowering technique was utilized adhering to the principles of ALARA. COMPARISON: CTA head and neck of same day, head CT 04/28/2009 FINDINGS: No acute intracranial hemorrhage, midline shift, intracranial mass, hydrocephalus, territorial ischemia or abnormal extra-axial collection. Mild involutional changes. Cerebral vascular calcifications. Chronic appearing infarcts of the left caudate head and left lentiform nucleus. Tiny subcentimeter age-indeterminate lacunar infarcts of the right basal ganglia. White matter hypodensities suggest chronic microvascular ischemic disease. Chronic left cerebellar infarct. The calvarium is intact. The paranasal sinuses, mastoid air cells, and middle ear cavities are clear. IMPRESSION: 1. No acute intracranial hemorrhage, midline shift or acute territorial infarct. 2. Chronic appearing lacunar infarcts of the left basal ganglia with a few subcentimeter age-indeterminate lacunar infarcts of the right basal ganglia. These findings are new from the 2008 comparison. 3. Chronic left cerebellar infarct. ACT 112: Negative or not required by law. The above report was generated using voice recognition software. It may contain grammatical, syntax or spelling errors. Electronically signed by: Sebastian Mullins M.D. 08/26/2021 7:53 PM Head CTA 08/26/21 19:03 CT angio neck with con, CT angio head w con CLINICAL HISTORY: 71 years-old Male with stroke symptoms. Acute strokelike symptoms COMPARISON STUDY: Head CT of same day TECHNIQUE: Following the IV administration of 117 mL of Optiray, CT angiogram of the head and neck was performed from the aortic arch to the skull apex. Images are reviewed in the axial, sagittal, and coronal planes. 3-D MIPS images are created and assessed. IV contrast was administered without complication. All measurements were calculated based on NASCET criteria. A dose lowering technique was utilized adhering to the principles of ALARA. CT DOSE: 1150.97 mGy.cm FINDINGS: Three-vessel morphology of the thoracic aortic arch with moderate atherosclerotic plaque. Patent innominate and imaged subclavian arteries. Atheromatous plaque of the common carotid arteries without high-grade stenosis. Extensive atherosclerotic plaque of the right carotid bulb results in less than 50% stenosis. 70% luminal narrowing of the supraclinoid right ICA on image 395 secondary to prominent calcified plaque. Extensive atherosclerotic plaque of the left carotid bulb and proximal left ICA results in 60% luminal narrowing on image 194. Moderate luminal narrowing of the cavernous segment left ICA secondary to calcified plaque. Mild multifocal luminal narrowing of the middle cerebral arteries. Anterior cerebral arteries are patent. The right vertebral artery is dominant. Multifocal high-grade stenosis involves the V4 segment of the right vertebral artery, most pronounced distally just proximal to the basilar artery. The V1 and V2 segments of the left vertebral artery are suboptimally visualized secondary to opacified adjacent venous structures. Moderate luminal narrowing of the V2 segment the level of C6 on image 151 with high-grade stenosis at the level of C3-C4. There is irregularity of the distal V2 segment left vertebral artery extending into the C3 segment with diminished flow. There is occlusion of the distal V3 and V4 segments. Multifocal high-grade stenoses of the basilar and posterior cerebral arteries. Distal aspect of the right posterior cerebral arteries difficult to visualize. The cerebral venous sinuses are patent. There is no abnormal intracranial enhancement. Craniotomy changes of the right occiput. Chronic infarct of the left cerebellar hemisphere. Emphysema. No pneumothorax. Medial deviation of the left vocal fold without discrete mass identified. Degenerative changes of the cervical spine. Developmentally bony fusion involves the posterior arch of C1. IMPRESSION: 1. Extensive atherosclerotic plaque of the carotid bulbs results in less than 50% stenosis on the right with approximately 60% luminal narrowing of the proximal cervical segment left ICA. 2. 70% stenosis of the supraclinoid segment of the right ICA. 3. Multifocal high-grade stenoses of the bilateral vertebral arteries, basilar and posterior cerebral arteries. 4. Irregularity with diminished flow of the distal V2 and V3 segments of the left vertebral artery with occlusion of the mid to distal V3 and V4 segments. Underlying arterial dissection would be difficult to exclude. These findings are age-indeterminate. 5. Emphysema. ACT 112: Negative or not required by law. The above report was generated using voice recognition software. It may contain grammatical, syntax or spelling errors. Electronically signed by: Sebastian Mullins M.D. 08/26/2021 8:20 PM Neck CTA 08/26/21 19:03 CT angio neck with con, CT angio head w con CLINICAL HISTORY: 71 years-old Male with stroke symptoms. Acute strokelike symptoms COMPARISON STUDY: Head CT of same day TECHNIQUE: Following the IV administration of 117 mL of Optiray, CT angiogram of the head and neck was performed from the aortic arch to the skull apex. Images are reviewed in the axial, sagittal, and coronal planes. 3-D MIPS images are created and assessed. IV contrast was administered without complication. All measurements were calculated based on NASCET criteria. A dose lowering technique was utilized adhering to the principles of ALARA. CT DOSE: 1150.97 mGy.cm FINDINGS: Three-vessel morphology of the thoracic aortic arch with moderate atherosclerotic plaque. Patent innominate and imaged subclavian arteries. Atheromatous plaque of the common carotid arteries without high-grade stenosis. Extensive atherosclerotic plaque of the right carotid bulb results in less than 50% stenosis. 70% luminal narrowing of the supraclinoid right ICA on image 395 secondary to prominent calcified plaque. Extensive atherosclerotic plaque of the left carotid bulb and proximal left ICA results in 60% luminal narrowing on image 194. Moderate luminal narrowing of the cavernous segment left ICA secondary to calcified plaque. Mild multifocal luminal narrowing of the middle cerebral arteries. Anterior cerebral arteries are patent. The right vertebral artery is dominant. Multifocal high-grade stenosis involves the V4 segment of the right vertebral artery, most pronounced distally just proximal to the basilar artery. The V1 and V2 segments of the left vertebral artery are suboptimally visualized secondary to opacified adjacent venous structures. Moderate luminal narrowing of the V2 segment the level of C6 on image 151 with high-grade stenosis at the level of C3-C4. There is irregularity of the distal V2 segment left vertebral artery extending into the C3 segment with diminished flow. There is occlusion of the distal V3 and V4 segments. Multifocal high-grade stenoses of the basilar and posterior cerebral arteries. Distal aspect of the right posterior cerebral arteries difficult to visualize. The cerebral venous sinuses are patent. There is no abnormal intracranial enhancement. Craniotomy changes of the right occiput. Chronic infarct of the left cerebellar hemisphere. Emphysema. No pneumothorax. Medial deviation of the left vocal fold without discrete mass identified. Degenerative changes of the cervical spine. Developmentally bony fusion involves the posterior arch of C1. IMPRESSION: 1. Extensive atherosclerotic plaque of the carotid bulbs results in less than 50% stenosis on the right with approximately 60% luminal narrowing of the proximal cervical segment left ICA. 2. 70% stenosis of the supraclinoid segment of the right ICA. 3. Multifocal high-grade stenoses of the bilateral vertebral arteries, basilar and posterior cerebral arteries. 4. Irregularity with diminished flow of the distal V2 and V3 segments of the left vertebral artery with occlusion of the mid to distal V3 and V4 segments. Underlying arterial dissection would be difficult to exclude. These findings are age-indeterminate. 5. Emphysema. ACT 112: Negative or not required by law. The above report was generated using voice recognition software. It may contain grammatical, syntax or spelling errors. Electronically signed by: Sebastian Mullins M.D. 08/26/2021 8:20 PM Supervising Physician Co-Signing Physician Notes Attending addendum: I have physically seen this patient, have supervised the medical residents activities, and agree with the H&P unless as otherwise noted. Assessment and Plan: Strokelike symptoms/history of CVA- Permissive hypertension Multiple stenoses noted in anterior and posterior circulation with previous infarcts on CT head, CTA head neck Stroke without TPA order set Order MRI brain without contrast Consult PT/OT/speech Remaining orders and notations as noted Resident Activity Tracking Resident Involvement: Resident Care Provided Care Provided: Adult Hospital Medicine (1) Trouble swallowing Dysphagia type: unspecified Qualified Code(s): R13.10 - Dysphagia, unspecified
[2021-08-26] MEDS ORDERED: PHARMACIST DISCHARGE MED REC CONSULT PRN (23:44)
[2021-08-27 05:26] LABS: Basophils % (auto) 0.8 %; Eosinophils # (auto) 0.41 K/uL (0-0.5); Eosinophils % (auto) 3.5 %; Hematocrit (blood only) 44.5 % (42-52); Hemoglobin 14.6 g/dL (14.0-18.0); Immature Granulocytes # (auto) 0.02 K/uL (0.00-0.02); Immature Granulocytes % (auto) 0.2 %; Lymphocytes # (auto) 1.09 K/uL (1.2-3.4); Lymphocytes % (auto) 9.2 %; Mean Corpuscular Hemoglobin 29.8 pg (25-34); Mean Corpuscular Hgb Conc 32.8 g/dL (32-36); Mean Corpuscular Volume 90.8 fL (80-100); Mean Platelet Volume 11.4 fL (7.4-10.4); Monocytes # (auto) 1.28 K/uL (0.11-0.59); Monocytes % (auto) 10.8 %; Neutrophils # (auto) 8.97 K/uL (1.4-6.5); Neutrophils % (auto) 75.5 %; Platelet Count 376 K/uL (130-400); RDW Coefficient of Variation 14.1 % (11.5-14.5); White Blood Count 11.87 K/uL (4.8-10.8)
[2021-08-27 05:37] LABS: BUN Creatinine Ratio 16.2 (10-20); Calcium 7.9 mg/dl (8.5-10.1); Creatinine Clr Calc Pharmacy 84.8 ml/min; Est GFR (Non-African American) 89.7 ml/min; Potassium 3.1 mmol/L (3.5-5.1)
[2021-08-27 06:22] LABS: Estimated Average Glucose 103 mg/dl; Hemoglobin A1C 5.2 % (4.5-5.6)
--- NOTE | 2021-08-27 08:47 | Neurology Consultation ---
Date of Consultation August 27, 2021 Assessment & Plan (1) Stroke: Patient has evidence of an acute infarct of the inferior left cerebellar hemisphere and left lateral medulla. Infarct distribution likely consistent with a left vertebral/posterior inferior cerebellar artery stroke. Patient has significant dysarthria, left hemiataxia, and a right lower facial droop. Hypertension and cigarette smoking are significant stroke risk factors for this patient. He does have a low HDL as well. He has extensive atherosclerotic plaque buildup within the carotid bulbs as well as a 70% stenosis of the supraclinoid right ICA, multifocal high-grade stenoses of the vertebrobasilar circulation, and an occlusion of the right mid to distal left vertebral artery. The left vertebral occlusion is likely acute in light of his acute infarct as seen clinically and depicted on MRI. Would recommend starting daily antiplatelet therapy in this patient. Would recommend dual antiplatelet therapy, clopidogrel 75 mg/day and aspirin 81 mg/day for the next 3 weeks. Would then discontinue aspirin in favor of clopidogrel 75 mg/day. Agree with high intensity statin, atorvastatin 80 mg/day as ordered. Permissive hypertension, systolic blood pressure 140 to 160 mmHg acutely. Smoking cessation needs to be stressed in this patient. Would also recommend 30-day mobile cardiac outpatient telemetry. PT/OT/speech therapy. History of Present Illness Reason for Consultation: stroke like symptoms Requesting Physician: Afsaneh Donohue MD Attending Physician: Nevin Hansen MD History of Present Illness The patient is a 71-year-old male who presented to the emergency department last night for further evaluation of poor balance and difficulty walking over the past 24 hours. Has been noted to have some slurred speech and dysphagia as well. Past medical history notable for multiple strokes, COPD and surgery for trigeminal neuralgia in the . A CT of the head completed yesterday was negative for hemorrhage or acute process but did reveal chronic appearing lacunar infarcts within the left basal ganglia and a few subcentimeter age- indeterminate lacunar infarcts within the right basal ganglia which appear new compared with the previous CT done in 2008. There is a chronic left cerebellar infarct as well. CT angiography of the head and neck revealed extensive atherosclerotic plaque within the carotid bulbs, 70% stenosis of the supraclinoid right ICA, multifocal high-grade stenoses of the bilateral vertebral, basilar, and posterior cerebral arteries, and occlusion of the mid to distal left vertebral artery. I reviewed the images as well as the radiologist interpretation of these tests. Patient's blood pressure has been modestly elevated. He has a fairly unremarkable lipid panel although HDL somewhat low, normal hemoglobin A1c and normal TSH. He has a mild leukocytosis. Normal sodium and renal function. His electrocardiogram reveals a normal sinus rhythm. Patient's outpatient medication regimen includes amlodipine and aspirin on an as-needed basis. He did have a wellness visit with Dr. Huizar this past January. Patient has declined colon cancer screening and screening for hepatitis C, he has received his COVID-19 vaccination series, he declined the Shingrix vaccination he does have hearing loss and wears hearing aids he is a tobacco user and is not inclined to quit. Although patient did present with some strokelike symptoms he was outside of the window for administration of TPA administration. Given the extent of the observed atherosclerotic disease burden on CT angiography of the head and neck neurology has been consulted for further input regarding his medication management. Specific question regarding whether or not dual antiplatelet therapy would be recommended in this patient's case. The patient continues to exhibit fairly significant dysarthria this morning, he complains of difficulty with swallowing as well and has been unable to take his oral medications. He has some right facial weakness which seems new and also complains of some difficulty with coordination affecting the left hand. Patient informs me that he had previously been prescribed a statin but decided to stop this medication. He does not take any blood thinners such as aspirin on a regular basis either. Allergies Allergy/AdvReac Type Severity Reaction Status Date / Time carbamazepine Allergy Unknown Unknown Verified 08/26/21 19:24 Home Medications Medication Instructions Recorded Confirmed Type amlodipine 5 mg tablet 5 mg PO DAILY #30 tab 08/26/21 08/26/21 Rx aspirin 500 mg tablet 500 mg PO BID PRN 08/26/21 08/26/21 History Patient History Medical History Duodenal ulcer History of CVA (cerebrovascular accident) Hypertension Hypothyroidism Surgical History H/O inguinal hernia repair H/O neck surgery Family History Sister Breast cancer Sister Breast cancer Denies family history of Ovarian cancer Prostate cancer Myocardial infarction Colorectal cancer Social History Smoking Status: Current every day smoker Tobacco Type: Cigarettes Age Started Using Tobacco: 8; packs per day: 1; Second Hand Exposure: No; Hx Alcohol Use: No Hx Substance Use: No Preferred Language: Moroccan Visual Impairment: No Limitations Hearing Ability: Use of Hearing Aid Beliefs That Will Affect Care: None marital status: Current Living Situation: Spouse current occupational status: employed 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 Feels Safe at Home: Yes Safety Concerns: Feels Safe At This Time Childhood Exposure to Second-Hand Smoke: Yes Dental Care, Regularly: No Physical Activity Frequency: 3-4 Times per Week Seatbelt Use: always Sunscreen Use: No Assistive Devices: None Review of Systems Constitutional: no fever and no chills Eyes: no blind spots and no diplopia Ear, Nose, Mouth, Throat: + hearing loss; no ear pain Respiratory: no cough and no dyspnea Cardiovascular: no chest pain and no palpitations Gastrointestinal: no constipation and no diarrhea/loose stools Genitourinary: no urinary incontinence or no urinary urgency Musculoskeletal: no muscle weakness and no muscle atrophy Integumentary: no rash and no lesions Neurologic: as per Subjective / HPI, + gait abnormality, + localized weakness, + lack of coordination and + abnormal speech Psychiatric: no behavioral changes, no depression, no abnormal sleep pattern and no anxiety Hematologic / Lymphatic: no easy bruising and no lymphadenopathy Exam (Neuro) Constitutional: well developed and well nourished; no acute distress Eyes: normal visual leyva by confrontation, PERRL, normal accommodation and EOM intact bilaterally; no fundoscopic abnormality, no nystagmus and no papilledema Cardiovascular: Vessels: normal carotid upstroke; no carotid bruit Neurologic: Oriented to:: Person, Place and Time Memory: Short Term Intact and Remote Intact Attention: Span Intact and Concentration Intact Language: Naming Objects and Repeating Phrases Speech Fluency: Dysarthria Speech Aphasia: negative Aphasia Fund of Knowledge: Current Events, Past History and Vocabulary Cranial Nerves: Normal II (Visual leyva full to confrontation, visual acuity normal), III, IV, (Pupils equal round reactive to light and accommodation, eye movements normal), V (Facial sensation intact), IX, X (Palate elevates to midline), XI (Shoulder shrug intact) and XII (Tongue protrudes to midline); Abnorm VII (There is a mild to moderate right lower facial droop.) or VIII (Hearing diminished bilaterally) Motor Strength: Normal Lower Extremities and Normal Upper Extremities; negative Pronator Drift Motor Tone: Normal Lower Extremities and Normal Upper Extremities Muscle Bulk/Involuntary Movements: No Involuntary Movements; negative Muscle Atrophy Sensation: Light Touch Intact, Pain/Temperature Intact, Vibration Intact and Proprioception Intact Coordination: Normal, Finger-Nose Abnormal Laterality: Left and Heel-Tobin Abnormal Laterality: Left; negative Limited Balance or Dysdiadochokinesia Deep Tendon Reflexes: Rt Triceps: 2+, Lt Triceps: 2+, Rt Biceps: 2+, Lt Biceps: 2+, Rt Brachioradialis: 2+, Lt Brachioradialis: 2+, Rt Patellar: 2+, Lt Patellar: 2+, Rt Ankle: 2+ and Lt Ankle: 2+ Special Tests: Babinski Present (bilateral) Details: Gait cannot be tested in the context of patient's current neurological status. Results & Data ([facility]) Vital Signs (Past 12 Hours) Vital Signs Temp Pulse Resp BP Pulse Ox 08/27/21 08:03 36.6 C 65 16 151/82 H 92 08/27/21 00:11 62 169/91 H 100 08/26/21 23:04 69 185/104 H 95 08/26/21 21:04 68 174/90 H 98 Laboratory Results WBC 11.87, hemoglobin 14.6, hematocrit 44.5, platelet count 376, sodium 141, potassium 3.1, BUN 13, creatinine 0.79, glucose 98, hemoglobin A1c 5.2, AST 16, ALT 22, troponin less than 0.015, triglycerides 119, cholesterol 145, LDL 92, VLDL 24, HDL 29, TSH 1.280, SARS-CoV-2 PCR negative, influenza screening negative Diagnostic Findings CT of the head and CT angiography of the head and neck are as described in the history of present illness, I reviewed the images as well as the radiologist interpretation of these tests. (He does have a chronic left cerebellar infarct, chronic left basal ganglia infarct, chronic infarct within the head of the left caudate, age-indeterminate right basal ganglia lacunar infarcts.) Extensive atherosclerotic plaque burden and occlusion of the mid to distal left vertebral artery as described in the HPI. Brain MRI completed this morning, images available per review, report pending. Per my review, there is an area of restricted diffusion within the inferior left cerebellar hemisphere as well as the left lateral medulla, infarct distribution likely consistent with a left vertebral/posterior inferior cerebellar artery infarct. Electrocardiogram reveals a normal sinus rhythm, 69 bpm. An echocardiogram reveals normal left ventricular size, moderate concentric left ventricular hypertrophy, ejection fraction 55%, no obvious regional wall motion abnormalities, there is evidence of intraventricular conduction delay and type I diastolic dysfunction. There is mild dilation of the left atrium. Coding Level of Care Code 07921 Initial In Care Lvl 3 Diagnoses Stroke I63.9
[2021-08-27] MEDS: HEPARIN SOD 5,000 UNIT/0.5 ML VIAL SQ SCH ×2 (08:57→21:20)
[2021-08-27] MEDS ORDERED: ATORVASTATIN 40 MG TAB PO SCH (09:00)
[2021-08-27] MEDS ORDERED: ASPIRIN 81 MG ECTAB PO SCH (09:00)
[2021-08-27] MEDS ORDERED: CLOPIDOGREL BISULFATE 75 MG TAB PO SCH (09:00)
[2021-08-27] MEDS ORDERED: GADOBUTROL 65ML VIAL IV ONE (09:53)
--- NOTE | 2021-08-27 10:27 | Electrocardiogram Report ---
Test Reason : Blood Pressure : / mmHG Vent. Rate : 069 BPM Atrial Rate : 069 BPM P-R Int : 180 ms QRS Dur : 106 ms QT Int : 440 ms P-R-T Axes : 045 -35 -14 degrees QTc Int : 471 ms Normal sinus rhythm Left axis deviation LVH with secondary ST/T changes Abnormal ECG When compared with ECG of 28-APR-2009 12:39, Left ventricular hypertrophy with secondary ST/T changes is now present Confirmed by Guerrero Alvarado ([id number]) on 08/27/2021 10:27:02 AM Referred By: REFERRED SELF Confirmed By:Guerrero Alvarado
--- NOTE | 2021-08-27 11:44 | Magnetic Resonance Report ---
MR brain wo/w con CLINICAL HISTORY: concern for new stroke. Difficulty ambulating. Garbled speech. COMPARISON STUDY: CT brain from 08/26/2021 and old MR brain from 04/13/2009 TECHNIQUE: Multiplanar multisequence images of the brain were performed before and after Gadavist, 6 .5 mL of IV contrast. Diffusion weighted imaging and ADC mapping was also performed. FINDINGS: Extra-axial space: There is no evidence for a subdural hematoma, There are no extra-axial fluid shi ections. Ventricles and cisterns: The ventricles are normal in size and configuration. There is no evidence f or midline shift or mass effect. Parenchyma: On noncontrast images, there is evidence for an acute infarct involving the left cerebell ar hemisphere, medially. There is acute diffusion abnormality noted on diffusion weighted imaging and ADC mapping. Old left cerebellar infarct is also seen. There is also an old lacunar infarct within the basal ganglia on the left. No other evidence for acute infarct is seen. There is normal samayoa-white differentiation. There is mild cerebral cortical atrophy present. The sulc i and gyri appear normal without effacement. The midline structures are unremarkable. The posterior f tawny structures appear normal. On postcontrast images, there is no evidence for enhancing mass lesion. Osseous structures: The paranasal sinuses are well aerated. The mastoid air cells are well aerated. Soft tissues: No focal soft tissue abnormality is seen. IMPRESSION: 1. Acute left cerebellar infarct 2. Old left cerebellar hemisphere infarct and old left lacunar infarct are also seen. 2. Mild cerebral cortical atrophy. The floor will be informed of these findings. ACT 112: Negative or not required by law. Electronically signed by: Justin Barrera M.D. 08/27/2021 11:43 AM
[2021-08-27] MEDS ORDERED: hydrALAZINE HCL 20 MG/ML VIAL IV PRN (16:02)
[2021-08-27] MEDS ORDERED: CLOPIDOGREL BISULFATE 75 MG TAB PEG ONE (16:43)
[2021-08-27] MEDS ORDERED: FIBERSOURCE HN 1.2 CAL 1000 ML BAG NG SCH (16:45)
--- NOTE | 2021-08-27 18:44 | Hospitalist Progress Note ---
Date of Service August 27, 2021 Assessment & Plan (1) CVA (cerebral vascular accident): Plan: 71 yo M with hx multiple CVAs brought to ER and admitted for concern for new CVA. Cerebellar stroke - outside of window for tpA given last known well >12 hours prior, no exact onset of sx - CTA neck/head showing severe stenosis of multiple arteries as above, multiple prior infarcts, no acute infarct - lipid, a1c pending. extensive smoking hx -Echocardiogram with bubble study is negative for interatrial shunt - not on daily antiplatelet, statin. --> Started on asa 81, atorvastatin 80 mg on admission. - speech consult, pt, ot, - neuro checks - neuro consult for extensive stroke hx -- query regarding initiating asa + plavix given high risk for CVA - permissive HTN - MRI brain: Acute left cerebellar infarct - Per neurology: Dual antiplatelet therapy (aspirin 81 mg Plavix 75 mg) x3 weeks - CoreSafe tube placed given severe dysphagia, tube feeds ordered (nutritional consult ordered) - One-time Plavix dose given via tube, one-time aspirin dose given per rectally; rest of scheduled DAPT, statin, amlodipine to be administered via PEG tube henceforth -Continue to monitor on telemetry, and will need long-term cardiac event monitoring as an outpatient to look for occult atrial fibrillation HTN - started on amlodipine 5 mg daily earlier as an outpatient-restart in the morning at 2.5 mg daily for permissive hypertension - allow permissive HTN for first 24 hours of admission - Likely follow-up outpatient for additional blood pressure medication titration DVT ppx: heparin sq Q12 FEN/GI: NPO due to overt aspiration during speech therapy evaluation Code Status: DNR/DNI Dispo: Med/Tele. may require short term rehab pending PT -- lives at home with who is also frail/ill (2) Dysphagia: (3) Slurred speech: (4) Hypothyroidism: (5) Hypertension: (6) History of CVA (cerebrovascular accident): (7) COPD (chronic obstructive pulmonary disease): Admission and Anticipated Discharge Date Admission Date: August 26, 2021 Supervising Physician Co-Signing Physician Notes I personally examined the patient and verified all haney points of history and exam, discussed case, and agree with decision making with Dr. Vera with the following additions/exceptions: Patient reports he is feeling very hungry, but we discussed that he is overtly aspirating with speech therapy and is not safe for him to swallow. He is agreeable to a course a feeding tube for medications and tube feeds. Otherwise, he reports he is feeling well. Denies headaches, no chest pain shortness of breath, no focal weakness. Vitals reviewed Gen: AAOx3, NAD HEENT: Anicteric sclerae, EOMI, positive right-sided facial droop, actively drooling CV: RRR no mgr nl S1S2 Pulm: CTAB no wcr Abd: +BS soft NT ND no masses or hernias Ext: No edema, 2+ DP pulses Skin: No rashes, warm/dry Neuro: Full strength throughout, cranial nerves II through XII intact except for right facial droop and tongue deviation to the right, sensation intact to light touch throughout, [id number] abnormal on the left but normal on the right, [id number] normal bilaterally Laboratory values and imaging reviewed 71-year-old male here with left cerebellar stroke and suspect also a small brainstem stroke which is not showing up on MRI. With severe dysphagia and overt aspiration on speech therapy evaluation Start tube feeds and use Aba for antiplatelet medications and statin as well as blood pressure meds Reassess daily with speech therapy appreciated, but may need to go to rehab versus home with tube feeds temporarily and if not improving, then consider PEG tube placement Awaiting PT/OT to determine need for rehab Will need long-term cardiac event monitor after discharge Subjective Patient slumped to the right in bed asleep this morning. He reports that, other than his inability to swallow, he feels "just fine." He denies any focal weakness, shortness of breath, dizziness, vision changes, difficulty with word finding, or any sensory deficits. Review of Systems Review of Systems: All systems reviewed & are unremarkable except as noted in HPI & below Physical Exam Constitutional: WD/WN, vitals as above ENMT: Mouth: + lip abnormality (Right-sided facial droop), + oropharynx abnormality and + drooling Respiratory: Difficulty ascertaining air movement through the lungs, due to pa tient's loud drooling Cardiovascular: Difficulty ascertaining S1 or S2 sounds due to patient loud drooling Neurologic: patellar DTR's 2+ bilat, sensation intact CN's II-XI intact bilaterally, moves all extremities and awake; no focal motor deficits and not confused Speech / Cognition: + abnormal speech; no expressive aphasia, no receptive aphasia and normal cognition Motor/Sensory: no sensory deficit Cranial Nerves: sense of smell intact, PERRL, normal accommodation, normal facial strength, tongue midline, normal hearing, able to rotate head bilaterally, able to elevate shoulders bilaterally and no nystagmus Coordination: normal [id number] test Results & Data Results & Data ([facility]) Vital Signs (Past 12 Hours) Vital Signs Temp Pulse Resp BP Pulse Ox 08/27/21 16:16 73 18 126/68 95 08/27/21 15:40 94 08/27/21 08:03 36.6 C 65 16 151/82 H 92 Resident Activity Tracking Resident Involvement: Resident Care Provided Care Provided: Adult Hospital Medicine
--- NOTE | 2021-08-27 18:57 | XRay Report ---
XR KUB/Abdomen 1 view CLINICAL HISTORY: NG tube placement. COMPARISON STUDY: No previous studies for comparison. TECHNIQUE: Single view of the abdomen. FINDINGS: The bowel gas pattern is within normal limits without evidence for dilatation or obstruction. The NG tube is present within the body of the stomach. There is no evidence for organomegaly or gross intra- abdominal mass. No abnormal calcifications are seen along the course of the urinary tracts bilaterall y. No acute osseous pathology. IMPRESSION: 1.No acute intra-abdominal abnormality. Tip of feeding tube within the mid body of the stomach. ACT 112: Negative or not required by law. Electronically signed by: Justin Barrera M.D. 08/27/2021 6:56 PM
[2021-08-27] MEDS: SODIUM CHLORIDE 0.9% 1000ML 1,000 ML IV SCH (20:09)
--- NOTE | 2021-08-27 20:11 | Billing Data ---
Date of Service August 27, 2021 Coding Level of Care Code 18483 Initial Inpt Care Lvl 3
[2021-08-27] MEDS: TUBE FEEDING WATER FLUSH GT SCH ×2 (20:16→21:25)
[2021-08-27] MEDS ORDERED: ASPIRIN 300 MG SUPP PR SCH (21:00)
--- NOTE | 2021-08-27 23:02 | Billing Data ---
Date of Service August 27, 2021 Coding Level of Care Code 64309 Initial Inpt Care Lvl 3
[2021-08-28] MEDS: TUBE FEEDING WATER FLUSH GT SCH ×6 (00:36→21:24)
--- NOTE | 2021-08-28 06:57 | Hospitalist Progress Note ---
Date of Service August 28, 2021 Assessment & Plan (1) CVA (cerebral vascular accident): Plan: Acute; stable; not at goal Outside tPA window. CTA head and neck: Multiple severe stenoses, evidence of prior infarcts. Echocardiogram negative for interatrial shunt. MRI brain: Acute left cerebellar infarct. Severe dysphagia, overt aspiration * Aspirin 81 mg, Plavix 75 mg daily x3 weeks * Atorvastatin 80 mg * Hemoglobin A1c: 5.2, lipid panel acceptable and ok to start high intensity statin * Speech therapy: Severe dysphagia, unimproved from yesterday. CoreSafe tube feeds initiated last night. Discussed prospect of converting to PEG tube if dysphagia fails to improve in 2 weeks. Patient understands and appears to be in agreement. Continue daily assessments. * Now on telemetry * Signed paper prescription for Holter monitor placement; will notify case management tomorrow. DVT prophylaxis: Heparin SQ every 12 hours Dispo: Require discharge to short-term rehab (versus home) pending PT eval, patient's acquiescence in the coming days. (2) Slurred speech: Plan: Acute; stable; not at goal Likely secondary to acute infarct (see above). (3) Hypertension: Plan: * Home amlodipine 2.5 mg daily and titrate back up to home dose of 5mg daily likely tomorrow (4) Hypothyroidism: Plan: TSH normal not on medications for this at home (5) History of CVA (cerebrovascular accident): (6) COPD (chronic obstructive pulmonary disease): Admission and Anticipated Discharge Date Admission Date: August 26, 2021 Supervising Physician Co-Signing Physician Notes I personally examined the patient and verified all haney points of history and exam, discussed case, and agree with decision making with Dr. Vera with the following additions/exceptions: Patient tolerating tube feeds, no abdominal pains. We discussed his condition and severe dysphagia and inability to safely eat and drink at this time. He understands and is hopeful that this will improve with time. we also discussed the possibility of going to acute rehab and he says that he is thinking about it but has not decided yet. Denies any chest pain or shortness of breath, no other issues. He was admitted to telemetry, but somehow was not placed on classified ad taker once he was transported from the ED hold area to the floor last night so there is no further telemetry to review Vitals reviewed Gen: AAOx3, NAD HEENT: Anicteric sclerae, EOMI, positive right-sided facial droop, has copious secretions of saliva in his mouth-he is self suctioning, NG tube in place CV: RRR no mgr nl S1S2 Pulm: CTAB no wcr Abd: +BS soft NT ND no masses or hernias Ext: No edema, 2+ DP pulses Skin: No rashes, warm/dry Neuro: Full strength throughout, cranial nerves II through XII intact except for right facial droop and tongue deviation to the right, sensation intact to light touch throughout, livsvz-[id number] abnormal on the left but normal on the right, [id number] normal bilaterally Laboratory values and imaging reviewed 71-year-old male here with left inferior cerebellar and left lateral medulla stroke. With severe dysphagia and overt aspiration on speech therapy evaluation 2 days in a row Appreciate speech therapy management-plan to reassess again on 08/29, but not hopeful that he will be able to swallow May need PEG tube in the future Started tube feeds and can provide medications through the tube for antiplatelet medications and statin as well as blood pressure meds Reassess daily with speech therapy appreciated, but may need to go to rehab versus home with tube feeds temporarily and if not improving, then consider PEG tube placement Transferred from [facility] to telemetry for monitoring for occult atrial fibrillation while he is hospitalized PT/OT recommending acute rehab-patient is considering this-I strongly encouraged him to do so Will need long-term cardiac event monitor after discharge Subjective Patient is awake and alert in bed this morning. He reports feeling much better than the day before. However, he wants to know when he can go home. He is tolerating core safe tube feeds well. Discussed 2-week limit to course of tube f eeds, possibility of installing permanent PEG tube, to which he is receptive at the moment. Per nursing: No acute events overnight. Though there was an initial delay in initiating his tube feeds, he has been receiving his medications without issue. Review of Systems Review of Systems: All systems reviewed & are unremarkable except as noted in HPI & below Physical Exam Constitutional: WD/WN, vitals as above ENMT: Mouth: + lip abnormality (Right-sided facial droop), + oropharynx abnormality and + drooling Neurologic: patellar DTR's 2+ bilat, sensation intact CN's II-XI intact bilaterally, moves all extremities and awake; no focal motor deficits and not c onfused Speech / Cognition: + abnormal speech; no expressive aphasia, no receptive aphasia and normal cognition Motor/Sensory: no sensory deficit Cranial Nerves: PERRL, normal accommodation, normal facial strength, tongue midline, normal hearing, able to rotate head bilaterally and able to elevate shoulders bilaterally Results & Data Results & Data ([facility]) Vital Signs (Past 12 Hours) Vital Signs Temp Pulse Pulse Resp BP BP Pulse Ox 08/27/21 22:31 36.8 C 66 18 159/87 H 94 08/27/21 21:49 80 18 133/93 95 Laboratory Results 08/28/21 07:22 08/28/21 07:22 Resident Activity Tracking Resident Involvement: Resident Care Provided Care Provided: Adult Hospital Medicine
[2021-08-28 07:42] LABS: Basophils # (auto) 0.08 K/uL (0-0.2); Basophils % (auto) 0.7 %; Eosinophils # (auto) 0.22 K/uL (0-0.5); Eosinophils % (auto) 1.9 %; Hematocrit (blood only) 44.8 % (42-52); Hemoglobin 14.5 g/dL (14.0-18.0); Immature Granulocytes # (auto) 0.01 K/uL (0.00-0.02); Immature Granulocytes % (auto) 0.1 %; Lymphocytes # (auto) 1.04 K/uL (1.2-3.4); Lymphocytes % (auto) 8.9 %; Mean Corpuscular Hemoglobin 29.6 pg (25-34); Mean Corpuscular Hgb Conc 32.4 g/dL (32-36); Mean Corpuscular Volume 91.4 fL (80-100); Mean Platelet Volume 11.1 fL (7.4-10.4); Neutrophils # (auto) 8.89 K/uL (1.4-6.5); Neutrophils % (auto) 76.4 %; Platelet Count 368 K/uL (130-400); RDW Coefficient of Variation 14.2 % (11.5-14.5); RDW Standard Deviation 47.9 fL (36.4-46.3); White Blood Count 11.64 K/uL (4.8-10.8)
[2021-08-28] MEDS: ATORVASTATIN 40 MG TAB NG SCH (08:15)
[2021-08-28] MEDS: ASPIRIN 81 MG CHEW NG SCH (08:15)
[2021-08-28] MEDS: CLOPIDOGREL BISULFATE 75 MG TAB PO SCH (08:15)
[2021-08-28] MEDS: HEPARIN SOD 5,000 UNIT/0.5 ML VIAL SQ SCH ×2 (08:15→21:24)
[2021-08-28] MEDS: SODIUM CHLORIDE 0.9% 1000ML 1,000 ML IV SCH ×2 (08:18→21:21)
[2021-08-28 08:23] LABS: BUN Creatinine Ratio 23.1 (10-20); Calcium 8.8 mg/dl (8.5-10.1); Creatinine Clr Calc Pharmacy 62.4 ml/min; Est GFR (African American) 88.9 ml/min; Est GFR (Non-African American) 76.7 ml/min; Potassium 3.8 mmol/L (3.5-5.1)
[2021-08-28] MEDS: amLODIPine BESYLATE 5 MG TAB NG SCH (09:19)
--- NOTE | 2021-08-28 20:01 | Billing Data ---
Date of Service August 28, 2021 Coding Level of Care Code 09232 Subseq Hosp Care Lvl 3
[2021-08-29] MEDS: TUBE FEEDING WATER FLUSH GT SCH ×6 (01:38→20:15)
[2021-08-29 05:58] LABS: Basophils # (auto) 0.08 K/uL (0-0.2); Basophils % (auto) 0.8 %; Eosinophils # (auto) 0.48 K/uL (0-0.5); Eosinophils % (auto) 4.9 %; Hematocrit (blood only) 44.5 % (42-52); Hemoglobin 14.4 g/dL (14.0-18.0); Immature Granulocytes # (auto) 0.03 K/uL (0.00-0.02); Immature Granulocytes % (auto) 0.3 %; Lymphocytes % (auto) 14.2 %; Mean Corpuscular Hemoglobin 29.8 pg (25-34); Mean Corpuscular Hgb Conc 32.4 g/dL (32-36); Mean Corpuscular Volume 91.9 fL (80-100); Mean Platelet Volume 11.4 fL (7.4-10.4); Monocytes # (auto) 1.59 K/uL (0.11-0.59); Monocytes % (auto) 16.1 %; Neutrophils # (auto) 6.29 K/uL (1.4-6.5); Neutrophils % (auto) 63.7 %; Platelet Count 384 K/uL (130-400); RDW Coefficient of Variation 14.2 % (11.5-14.5); RDW Standard Deviation 48.1 fL (36.4-46.3); Red Blood Count 4.84 M/uL (4.7-6.1); White Blood Count 9.87 K/uL (4.8-10.8)
[2021-08-29 06:37] LABS: BUN Creatinine Ratio 21.3 (10-20); Calcium 8.7 mg/dl (8.5-10.1); Creatinine Clr Calc Pharmacy 72.3 ml/min; Est GFR (African American) 100.4 ml/min; Est GFR (Non-African American) 86.6 ml/min; Potassium 3.6 mmol/L (3.5-5.1)
--- NOTE | 2021-08-29 07:01 | Hospitalist Progress Note ---
Date of Service August 29, 2021 Assessment & Plan (1) CVA (cerebral vascular accident): Plan: Outside tPA window. CTA head and neck: Multiple severe stenoses, evidence of prior infarcts. Echocardiogram negative for interatrial shunt. MRI brain: Acute left cerebellar infarct. Severe dysphagia, overt aspiration * Aspirin 81 mg, Plavix 75 mg daily x3 weeks; subsequent follow-up with PCP and neurology. * Atorvastatin 80 mg * Hemoglobin A1c: 5.2 * Speech therapy: Severe dysphagia, unimproved from yesterday. Patient will likely need PEG tube placement. * CoreSafe tube feeds * Placed GI consult for evaluation for placement of PEG tube. * Discussed converting to PEG tube if dysphagia fails to improve in 2 weeks. Patient understands and in agreement. * Med telemetry * Signed paper prescription for Holter monitor placement; case management notified. Swallowing dysfunction - GI consult for PEG placement. DVT prophylaxis: Heparin SQ every 12 hours Dispo: Discharge to short-term rehab pending GI evaluation for PEG tube placement. (2) Slurred speech: Plan: Likely secondary to acute infarct (see above). (3) Hypertension: Plan: * Home amlodipine 2.5 mg daily * Increase amlodipine to 5 mg daily (4) Hypothyroidism: (5) History of CVA (cerebrovascular accident): (6) COPD (chronic obstructive pulmonary disease): Admission and Anticipated Discharge Date Admission Date: August 26, 2021 Supervising Physician Co-Signing Physician Notes Resident Physician Supervision Note: I independently interviewed and examined the patient and verified the haney history and physical, reviewed labs and image studies and agree with resident Dr. Vera findings and care plan. Review of Systems Review of Systems: All systems reviewed & are unremarkable except as noted in HPI & below Physical Exam Constitutional: WD/WN, vitals as above ENMT: Mouth: + lip abnormality (Right-sided facial droop), + oropharynx abnormality and + drooling Neurologic: patellar DTR's 2+ bilat, sensation intact CN's II-XI intact bilaterally, moves all extremities and awake; no focal motor deficits and not confused Speech / Cognition: + abnormal speech; no expressive aphasia, no receptive aphasia and normal cognition Motor/Sensory: no sensory deficit Cranial Nerves: sense of smell intact, PERRL, normal accommodation, normal facial strength, tongue midline, normal hearing, able to rotate head bilaterally, able to elevate shoulders bilaterally and no nystagmus Results & Data Results & Data ([facility]) Vital Signs (Past 12 Hours) Vital Signs Temp Pulse Pulse Resp BP Pulse Ox 08/29/21 04:29 64 08/29/21 03:00 36.6 C 77 19 164/77 H 97 08/29/21 00:00 36.5 C 76 20 160/84 H 96 08/28/21 19:00 36.6 C 68 19 172/76 H 94 Resident Activity Tracking Resident Involvement: Resident Care Provided Care Provided: Adult Hospital Medicine
[2021-08-29] MEDS: amLODIPine BESYLATE 5 MG TAB NG SCH (09:05)
[2021-08-29] MEDS: ATORVASTATIN 40 MG TAB NG SCH (09:06)
[2021-08-29] MEDS: CLOPIDOGREL BISULFATE 75 MG TAB PO SCH (09:06)
[2021-08-29] MEDS: ASPIRIN 81 MG CHEW NG SCH (09:06)
[2021-08-29] MEDS: SODIUM CHLORIDE 0.9% 1000ML 1,000 ML IV SCH (09:10)
[2021-08-29] MEDS: HEPARIN SOD 5,000 UNIT/0.5 ML VIAL SQ SCH ×2 (09:29→20:15)
[2021-08-30] MEDS: TUBE FEEDING WATER FLUSH GT SCH ×6 (01:09→23:41)
[2021-08-30 07:05] LABS: Basophils # (auto) 0.09 K/uL (0-0.2); Basophils % (auto) 0.9 %; Eosinophils # (auto) 0.52 K/uL (0-0.5); Eosinophils % (auto) 5.1 %; Hematocrit (blood only) 45.2 % (42-52); Hemoglobin 15.1 g/dL (14.0-18.0); Immature Granulocytes # (auto) 0.02 K/uL (0.00-0.02); Immature Granulocytes % (auto) 0.2 %; Lymphocytes # (auto) 1.53 K/uL (1.2-3.4); Mean Corpuscular Hemoglobin 29.8 pg (25-34); Mean Corpuscular Hgb Conc 33.4 g/dL (32-36); Mean Corpuscular Volume 89.3 fL (80-100); Mean Platelet Volume 11.3 fL (7.4-10.4); Monocytes % (auto) 14.7 %; Neutrophils # (auto) 6.56 K/uL (1.4-6.5); Neutrophils % (auto) 64.1 %; Platelet Count 377 K/uL (130-400); RDW Standard Deviation 45.8 fL (36.4-46.3); Red Blood Count 5.06 M/uL (4.7-6.1); White Blood Count 10.22 K/uL (4.8-10.8)
--- NOTE | 2021-08-30 07:41 | Neurology Progress Note ---
Date of Service August 30, 2021 Assessment & Plan (1) CVA (cerebral vascular accident): (2) Slurred speech: (3) Dysphagia: (4) Weakness: (5) Ataxia due to acute cerebrovascular disease: Plan: this patient had the onset of small left cerebellar and left medullary acute infarcts resulting in dysarthria, dysphagia, and left devante ataxia. He was noted to have a right facial droop but this is old from his previous stroke. I believe his symptoms are improving although he still has difficulty swallowing. His gait is poor because of the ataxia. This is likely ischemic and his risk factors include cigarette smoking and hypertension. He has no indication for dyslipidemia or diabetes. This patient has multiple vascular stenoses in the carotid arteries, intracranial circulation, and the vertebrals, particularly on the left (which has an occlusion). The acute stroke is likely due to left vertebral occlusion ( or a partial posterior inferior cerebellar artery occlusion as a branch of the left vertebral) Recommendations: 1. continue clopidogrel 75 milligrams +81 milligram aspirin tablet daily, for a total of 3 weeks. Then discontinue the aspirin and continue clopidogrel. 2. continue monitoring his swallowing. He is getting fed via NG tube currently and may need a PEG tube if he can't regain his swallowing ability. I predict, based on the small size of his strokes, that he should make neurologic improvements in all of his deficits fairly rapidly. Hopefully will be able to swallow some. 3. physical, occupational, and speech therapy consult on a ongoing basis. 4. Increase activity as able. 5. discontinue all cigarette smoking. 6. control blood pressure as you are doing, aiming for a mean arterial pressure of 95-100. 7. Technically, he is a high dose statin candidate, but I would probably stay with regular doses only because his lipid levels were so normal. 8. this contact me if I can be of further assistance as I have no further neurologic testing or treatment recommendations to make at this time. Overall, I spent a total of 60 minutes with this case including review of records, review of MRI films, direct evaluation the patient at bedside, and discussion of the case with the patient and RN at bedside, and Dr. Vera. Admission and Anticipated Discharge Date Admission Date: August 27, 2021 Subjective Patient feels like he may be swallowing a little bit better. This is not necessarily verified by nursing or speech therapy. His speech seems to be improving a little bit more, and he is fairly intelligible. He does not have any pain or headache. He is seeing well and does not have diplopia or blurred vision. He does not seem to feel weak. He knows he has a right facial droop and states that this is from his previous stroke. His balance is off as is his coordination in the left upper extremity. Total cholesterol on August 27 145 and triglycerides 119. Hemoglobin A1c was 5.2. CBC today was unremarkable. Blood pressure today is 157/80. Echocardiogram showed some moderate left ventricular hypertrophy and an intraventricular conduction delay On admission CT angiography showed proximal internal carotid artery stenosis of 50 percent on the right and 60 percent on the left. There was a distal right ICA stenosis of 70 percent. In addition there was multiple high-grade stenoses of the both vertebral arteries, the basilar artery, and both posterior cerebral arteries. There was probable occlusion of the left vertebral artery at V3/4. MRI of the brain shows small medial inferior left cerebellar hemisphere stroke as well as a small left medullary stroke. in addition he has old left cerebellar And left basal ganglia lacunar infarcts. I reviewed these films. Results & Data ([facility]) Vital Signs (Past 12 Hours) Vital Signs Temp Pulse Resp BP BP Pulse Ox 08/30/21 07:21 37.1 C 68 20 157/89 H 92 08/30/21 02:58 37.1 C 73 18 159/91 H 97 08/29/21 23:23 37.4 C 80 18 148/74 H 97 08/29/21 19:51 36.8 C 76 18 168/86 H 93 Exam (Neuro) Physical Exam: He is awake and alert. Speech is without aphasia but he has a significant dysarthria. He is intelligible. He follows commands well and has good mood affect. Thought processes seem intact to conversation. Extraocular eye muscles are intact without nystagmus. He has a mild facial droop on the right ( likely old ). Tongue is midline. Neck is supple. Gait is wide-based. When he puts his feet together eyes open he falls immediately to the left. He can take a couple of steps without too much difficulty. With outstretched arms there is slight drift on the left and he has ataxia with [id number] testing on the left. The right is normal. There is no tremor. The left lower extremity has perhaps slight ataxia with [id number]-xp-[id number] testing but is much better than the left upper extremity. The right leg is normal. Motor strength is 5/5 diffusely in all major muscle groups in the arms and legs both proximally distally with no focal weakness. Reflexes are 1/4 the biceps, triceps, brachioradialis, and quadriceps tendons bilaterally. Achilles tendon reflexes are 0/4 and toes are downgoing to plantar stimulation bilaterally. PG Care Time/CCT Total # of Minutes Spent Total Time Spent with Patient: Total time spent is greater than 50% in coordination of care (as documented) at patient's floor/unit and/or counseling patient: Coding Level of Care Code 47823 Subseq Hosp Care Lvl 3 Diagnoses CVA (cerebral vascular accident) I63.9 Slurred speech R47.81 Dysphagia R13.10 Weakness R53.1 Ataxia due to acute cerebrovascular disease I67.89; R27.0 Time Spent (min) 60 Comment add modifiers as able
[2021-08-30 07:43] LABS: BUN Creatinine Ratio 18.8 (10-20); Calcium 9.4 mg/dl (8.5-10.1); Creatinine Clr Calc Pharmacy 59.9 ml/min; Est GFR (African American) 84.7 ml/min; Est GFR (Non-African American) 73.1 ml/min; Potassium 4.1 mmol/L (3.5-5.1)
[2021-08-30] MEDS: HEPARIN SOD 5,000 UNIT/0.5 ML VIAL SQ SCH ×2 (08:11→20:36)
[2021-08-30] MEDS: ASPIRIN 81 MG CHEW NG SCH (08:14)
[2021-08-30] MEDS: CLOPIDOGREL BISULFATE 75 MG TAB PO SCH (08:15)
[2021-08-30] MEDS: amLODIPine BESYLATE 5 MG TAB NG SCH (08:16)
[2021-08-30] MEDS: ATORVASTATIN 40 MG TAB NG SCH (08:16)
--- NOTE | 2021-08-30 10:37 | Gastrointestinal Consultation ---
Date of Consultation August 30, 2021 Assessment & Plan (1) Dysphagia: Patient is a 71 yo male with acute L cerebellar infarct leading to dysphagia. -Await formal ARCHITECTURAL REPRESENTATIVE eval with FEES. -Pending results may need PEG tube tomorrow; Discussed procedure and risks with patient. He is interested and agreeable to proceed with this plan. -Continue NG feeding for now. -Discussed the risk of not being able to endoscopically place tube given his history of multiple abdominal surgeries. Supervising Physician Co-Signing Physician Notes Agree with GUANAKO Capellan as above Abd: Soft, NT, ND, +BS Continue current therapy and supportive care Await ARCHITECTURAL REPRESENTATIVE assessment and plan Consider PEG Tube placement tomorrow if needed. History of Present Illness Reason for Consultation: dysphagia, PEG eval Attending Physician: Milla Meeks MD History of Present Illness Patient is a 71 yo female with PMH of hypothyroidism, hypertension, sinusitis, trigeminal neuralgia, prediabetes, HLD, COPD, BPH, anxiety, chronic back pain who is hospitalized with acute L cerebellar infarct. GI has been consulted due to dysphagia. He has been assessed by neurology and is expected to recover his swallowing and speech deficits. He is currently being fed via NG tube. GI has been asked to eval for PEG tube. He reports a history of appendectomy and multiple hernia repairs. Abdominal scarring is minimal. He is currently on Aspirin & Plavix. Allergies Allergy/AdvReac Type Severity Reaction Status Date / Time carbamazepine Allergy Unknown Unknown Verified 08/26/21 19:24 Home Medications Medication Instructions Recorded Confirmed Type amlodipine 5 mg tablet 5 mg PO DAILY #30 tab 08/26/21 08/26/21 Rx aspirin 500 mg tablet 500 mg PO BID PRN 08/26/21 08/26/21 History Patient History Medical History (Updated 08/30/21 @ 07:40 by Mauro Villalba MD) CVA (cerebral vascular accident) Duodenal ulcer Dysphagia History of CVA (cerebrovascular accident) Hypertension Hypothyroidism Surgical History H/O inguinal hernia repair H/O neck surgery "cut of trigeminal nerve" Family History Sister Breast cancer Sister Breast cancer Denies family history of Ovarian cancer Prostate cancer Myocardial infarction Colorectal cancer Social History Smoking Status: Current every day smoker Tobacco Type: Cigarettes Age Started Using Tobacco: 8; packs per day: 1; Second Hand Exposure: No; Hx Alcohol Use: No Hx Substance Use: No Preferred Language: Croatian Communication Ability: Effective Visual Impairment: No Limitations Hearing Ability: Use of Hearing Aid Beliefs That Will Affect Care: None marital status: Current Living Situation: Spouse current occupational status: employed current occupation: works at [employer] doing [employer] work Feels Safe at Home: Yes Safety Concerns: Feels Safe At This Time Childhood Exposure to Second-Hand Smoke: Yes Dental Care, Regularly: No Physical Activity Frequency: 3-4 Times per Week Seatbelt Use: always Sunscreen Use: No Assistive Devices: Glasses and Hearing Aid - Bilateral Review of Systems Constitutional: no fever and no chills Respiratory: no cough and no dyspnea Cardiovascular: no chest pain Gastrointestinal: no abdominal pain, no nausea and no vomiting Integumentary: no problem reported Neurologic: + abnormal speech and + problem reported (dysphagia) Hematologic / Lymphatic: no problem reported Physical Exam Constitutional: WD/WN, vitals as above Respiratory: normal respiratory effort Cardiovascular: Rate/Rhythm: regular rate and regular rhythm Gastrointestinal (Abdomen): normal bowel sounds, soft, nontender, no hepatosplenomegaly Musculoskeletal: Head/Neck/Chest: normocephalic Skin: no rashes, warm and dry Neurologic: Speech / Cognition: + abnormal speech Psychiatric: Orientation: alert and oriented x 3 Results & Data ([facility]) Vital Signs (Past 12 Hours) Vital Signs Temp Pulse Resp BP BP Pulse Ox 08/30/21 07:21 37.1 C 68 20 157/89 H 92 08/30/21 02:58 37.1 C 73 18 159/91 H 97 08/29/21 23:23 37.4 C 80 18 148/74 H 97 PG Care Time/CCT Total # of Minutes Spent Total Time Spent with Patient: Total time spent is greater than 50% in coordination of care (as documented) at patient's floor/unit and/or counseling patient: Coding Level of Care Code 67684 Initial Inpt Care Lvl 3 Diagnoses Dysphagia R13.10
--- NOTE | 2021-08-30 10:53 | XRay Report ---
KUB HISTORY: Status post placement of a feeding tube confirm CoreSafe NG tube placement COMPARISON: KUB 08/27/2021 FINDINGS: The lower abdomen is excluded from the [id number]. Nonobstructive bowel gas pattern. Mil d fecal retention. Distal tip of enteric tube projects over the gastric body. Renal shadows are obscu red by bowel gas. No renal calculi. No ureteral calculi. No pneumoperitoneum or pneumatosis. No frac ture. IMPRESSION: Distal tip of feeding tube projects over the gastric body. ACT 112: Negative or not required by law. The above report was generated using voice recognition software. It may contain grammatical, syntax o r spelling errors. Electronically signed by: Sebastian Mullins M.D. 08/30/2021 10:51 AM
[2021-08-30 14:15] LABS: INR 1.1 (0.9-1.1); Prothrombin Time 10.8 Seconds (9.0-12.0)
--- NOTE | 2021-08-30 15:54 | Hospitalist Progress Note ---
Date of Service August 30, 2021 Assessment & Plan (1) CVA (cerebral vascular accident): Plan: Acute CVA Was Outside tPA window. CTA head and neck: Multiple severe stenoses, evidence of prior infarcts. Echocardiogram negative for interatrial shunt. MRI brain: Acute left cerebellar infarct. Severe dysphagia, overt aspiration * Aspirin 81 mg, Plavix 75 mg daily x3 weeks; then stop aspirin, continue Plavix 75 mg daily. Subsequent follow-up with PCP and neurology. * Atorvastatin 80 mg daily * Neurology in agreement with the above plan: Prognosis positive for dysphagia recovery with intensive rehab, based on Dr. Villalba's assessment of brain MRI, exam (see neurology note). * Hemoglobin A1c: 5.2 * Follow-up with case management about acute rehab placement. * Prescription for Holter monitor placement signed in patient's chart; case management notified by unit controller HTN * Home amlodipine 2.5 mg daily * As needed Lopressor IV push Swallowing dysfunction * CoreSafe tube feeds * Discussed placement of temporary PEG tube with patient, intensive rehabilitation of his dysphagia and acute rehab; patient understands and in agreement. * Speech therapy: FEES instrumentation completed today. * Per GI: PEG tube placement scheduled for tomorrow; cefazolin 1000 mg preop prophylaxis ordered by GI protein-calorie malnutrition * tube feeds DVT prophylaxis: Heparin SQ every 12 hours Dispo: [facility]; discharge to short-term rehab pending GI evaluation for PEG tube placement. FEN/GI: Coresafe nasogastric tube feeds. (2) Slurred speech: Plan: Likely secondary to acute infarct (see above). (3) Hypertension: (4) Hypothyroidism: (5) History of CVA (cerebrovascular accident): (6) COPD (chronic obstructive pulmonary disease): Admission and Anticipated Discharge Date Admission Date: August 27, 2021 Supervising Physician Co-Signing Physician Notes Resident Physician Supervision Note: I independently interviewed and examined the patient and verified the haney history and physical, reviewed labs and image studies and agree with resident Dr. Vera findings and care plan. Subjective Patient is awake and seated upright in his bed this morning. He has no questions or concerns at this time. Patient is tolerating his core safe feeds well. Review of Systems Review of Systems: All systems reviewed & are unremarkable except as noted in HPI & below Physical Exam Constitutional: WD/WN, vitals as above ENMT: Mouth: + lip abnormality (Right-sided facial droop), + oropharynx abnormality and + drooling Respiratory: + cough Auscultation: + crackles and + wheezes Cardiovascular: RRR, no murmur, no edema Gastrointestinal (Abdomen): normal bowel sounds, soft, nontender, no hepatosplenomegaly Musculoskeletal: no cyanosis or clubbing, extremities motor strength 5/5 Neurologic: patellar DTR's 2+ bilat, sensation intact moves all extremities and awake; no focal motor deficits and not confused Speech / Cognition: + abnormal speech; no expressive aphasia, no receptive aphasia and normal cognition Motor/Sensory: no sensory deficit Cranial Nerves: PERRL, normal accommodation, tongue midline, able to rotate head bilaterally and able to elevate shoulders bilaterally Results & Data Results & Data ([facility]) Vital Signs (Past 12 Hours) Vital Signs Temp Pulse Pulse Resp BP BP Pulse Ox 08/30/21 11:30 36.6 C 70 20 146/87 H 94 08/30/21 08:15 57 L 08/30/21 07:21 37.1 C 68 20 157/89 H 92 Resident Activity Tracking Resident Involvement: Resident Care Provided Care Provided: Adult Hospital Medicine
[2021-08-31] MEDS: TUBE FEEDING WATER FLUSH GT SCH ×6 (03:29→19:55)
[2021-08-31 07:27] LABS: Basophils % (auto) 0.8 %; Eosinophils # (auto) 0.57 K/uL (0-0.5); Eosinophils % (auto) 4.8 %; Hemoglobin 15.6 g/dL (14.0-18.0); Immature Granulocytes # (auto) 0.04 K/uL (0.00-0.02); Immature Granulocytes % (auto) 0.3 %; Lymphocytes % (auto) 15.2 %; Mean Corpuscular Hgb Conc 33.2 g/dL (32-36); Mean Corpuscular Volume 90.4 fL (80-100); Mean Platelet Volume 11.6 fL (7.4-10.4); Monocytes # (auto) 1.61 K/uL (0.11-0.59); Monocytes % (auto) 13.6 %; Neutrophils # (auto) 7.72 K/uL (1.4-6.5); Neutrophils % (auto) 65.3 %; Platelet Count 423 K/uL (130-400); RDW Coefficient of Variation 14.1 % (11.5-14.5); RDW Standard Deviation 47.1 fL (36.4-46.3); White Blood Count 11.84 K/uL (4.8-10.8)
[2021-08-31 07:59] LABS: BUN Creatinine Ratio 22.8 (10-20); Calcium 9.4 mg/dl (8.5-10.1); Creatinine Clr Calc Pharmacy 59.9 ml/min; Est GFR (African American) 84.7 ml/min; Est GFR (Non-African American) 73.1 ml/min
[2021-08-31] MEDS: CLOPIDOGREL BISULFATE 75 MG TAB PO SCH (08:54)
[2021-08-31] MEDS: ATORVASTATIN 40 MG TAB NG SCH (08:54)
[2021-08-31] MEDS: amLODIPine BESYLATE 5 MG TAB NG SCH (08:54)
[2021-08-31] MEDS: ASPIRIN 81 MG CHEW NG SCH (08:54)
[2021-08-31] MEDS: HEPARIN SOD 5,000 UNIT/0.5 ML VIAL SQ SCH ×2 (08:59→19:54)
--- NOTE | 2021-08-31 10:08 | History & Physical Bridge Note ---
Date of Service August 31, 2021 History & Physical Bridge Note I have examined the patient, reviewed the History & Physical and in the interval since the performance of the History & Physical I have noted the following changes of clinical significance: no changes noted. Patient had evaluation with DRIVING TEACHER yesterday. He will require a PEG tube until he can be rehab with DRIVING TEACHER. Discussed risks and benefits of the procedure. Patient is agreeable to proceeding. Continue to hold feeds. We will proceed with PEG tube this afternoon. Will give a dose of Ancef pre-operatively. Supervising Physician Co-Signing Physician Notes Agree with GUANAKO Capellan as above Abd: Soft, NT, ND, +BS Continue current therapy Proceed with EGD and PEG tube placement today
[2021-08-31] MEDS ORDERED: ceFAZolin 1000MG 1,000 MG/7.5 ML SYR IV ONE (13:14)
[2021-08-31] MEDS ORDERED: LIDOCAINE 2% 2 ML VIAL/AMP(20MG/ML) INFIL ONE (14:20)
[2021-08-31] MEDS ORDERED: PROPOFOL IV EMULSION 10 MG/ML 20 ML VIAL IV ONE (14:20)
--- NOTE | 2021-08-31 15:23 | Anesthesiology Consultation ---
Date of Service August 31, 2021 Assessment & Plan Chart Review Chart Review: Acceptable Risk for Surgery and Patient NOT seen in Pre Admission Testing Consults Requested none ASA ASA4 Proposed Anesthesia Anesthesia Type: MAC Risk / Benefits Reviewed With: PT / POA / Parent / Guardian, Accepts Plan and Informed Consent Obtained History Surgery Operation Date: 08/30/21 16:45 Proposed Procedures p EGD Gastric Tube Placement - Keven G. Case, DO Operation Date: 08/31/21 15:30 Proposed Procedures p EGD Gastric Tube Placement - Keven G. Case, DO Height/Weight Height: 5 ft 10 in Weight: 64.7 kg Allergies Allergy/AdvReac Type Severity Reaction Status Date / Time carbamazepine Allergy Unknown Unknown Verified 08/26/21 19:24 Medications Home Medications Medication Instructions Recorded Confirmed Last Taken amlodipine 5 mg tablet 5 mg PO DAILY #30 tab 08/26/21 08/26/21 08/26/21 aspirin 500 mg tablet 500 mg PO BID PRN 08/26/21 08/26/21 08/17/21 Active Medications Generic Name Dose Route Start Last Admin Trade Name Freq PRN Reason Stop Dose Admin Amlodipine Besylate 2.5 mg 08/28/21 09:00 08/31/21 08:54 Amlodipine Besylate 5 Mg Tab NG 09/27/21 08:59 Not Given [facility]AM [facility] Aspirin 81 mg 08/28/21 09:00 08/31/21 08:54 Aspirin 81 Mg Chew NG 09/27/21 08:59 Not Given [facility] Atorvastatin Calcium 80 mg 08/28/21 09:00 08/31/21 08:54 Atorvastatin 40 Mg Tab NG 09/27/21 08:59 Not Given [facility] Clopidogrel Bisulfate 75 mg 08/28/21 09:00 08/31/21 08:54 Clopidogrel Bisulfate 75 Mg Tab PO 09/27/21 08:59 Not Given [facility] Enteral Nutritional Formula 1,000 ml 08/27/21 16:45 08/28/21 08:19 Fibersource Hn 1.2 [place] 1000 Ml Bag NG 09/26/21 16:44 1,000 ml UD [facility] Administration Protocol Heparin Sodium (Porcine) 5,000 units 08/27/21 09:00 08/31/21 08:59 Heparin Sod 5,000 Unit/0.5 Ml Vial SQ 09/26/21 08:59 Not Given Q12 SATINDER Sterile Water 75 ml 08/27/21 17:30 08/31/21 14:21 Tube Feeding Water Flush GT 09/26/21 17:29 Not Given Q4H SATINDER NPO Date Last Intake of Fluids: 08/31/21 Time Last Intake of Fluids: 00:00 Last Intake of Fluids Comment: tube feeding held at 0000 Date Last Intake of Solids: 08/26/21 Time Last Intake of Solids: 14:00 Last Intake of Solids Comment: 1400 Past Medical History Medical History (Updated 08/30/21 @ 07:40 by Mauro Villalba MD) CVA (cerebral vascular accident) Duodenal ulcer Dysphagia History of CVA (cerebrovascular accident) Hypertension Hypothyroidism Exercise / Class Metabolic Activity II 4-5 Yardwork/Stairs/Walk up hill Past Family History Family History Sister Breast cancer Sister Breast cancer Denies family history of Ovarian cancer Prostate cancer Myocardial infarction Colorectal cancer Past Surgical History Surgical History H/O inguinal hernia repair H/O neck surgery "cut of trigeminal nerve" Past Anesthesia History No Hx of Anesthesia Complications and No Family Hx of Anesthesia Complications History of PONV No Hx of PONV and No Hx of Motion Sickness Social History Smoking Status: Current every day smoker tobacco type: cigarettes Hx Alcohol Use: No Hx Substance Use: No Physical Exam Vital Signs Last Vital Signs Temp 36.5 C 08/31/21 12:31 Pulse 70 08/31/21 12:31 Resp 16 08/31/21 12:31 BP 120/80 08/31/21 12:31 Pulse Ox 91 08/31/21 12:31 ENMT Mouth: no dentition abnormality Thyromental Distance: > or= 3.5 Finger Breadths Mallampati Class: II Neck normal visual inspection Respiratory normal respiratory effort Auscultation: lungs clear to auscultation bilaterally Cardiovascular Rate/Rhythm: regular rate and regular rhythm Neurologic moves all extremities mild LLE weakness. Moderate dysarthria. Psychiatric Orientation: alert and oriented x 3 Testing Laboratory Results 08/31/21 06:45 08/31/21 06:45 PT 10.8 Seconds (9.0-12.0) 08/30/21 13:34 INR 1.1 (0.9-1.1) 08/30/21 13:34 Hemoglobin A1c 5.2 % (4.5-5.6) 08/27/21 04:50 Urine Color Yellow 08/26/21 19:55 Urine Appearance Clear (Clear) 08/26/21 19:55 Urine pH 7.5 (4.5-7.5) 08/26/21 19:55 Ur Specific [place] 1.025 (1.000-1.030) 08/26/21 19:55 Urine Protein Negative (Negative) 08/26/21 19:55 Urine Glucose (UA) Negative (Negative) 08/26/21 19:55 Urine Ketones Negative (Negative) 08/26/21 19:55 Urine Nitrite Negative (Negative) 08/26/21 19:55 Ur Leukocyte Esterase Negative (Negative) 08/26/21 19:55 08/26/21 21:09 Aerobic Blood Culture - Preliminary Blood No growth in Aerobic bottle after 48 hours. Anaerobic Blood Culture - Preliminary No growth in Anaerobic bottle after 48 hours. 08/26/21 19:47 Aerobic Blood Culture - Preliminary Blood No growth in Aerobic bottle after 48 hours. Anaerobic Blood Culture - Final 08/31/21 08/31/21 11:56 07:42 POC Glucose 104 H 114 H
--- NOTE | 2021-08-31 16:41 | GI REPORT ---
Patient Name: Ken Dumont Procedure Date: 08/31/2021 3:55 PM Date of : 1950 Admit Type: Inpatient Age: 71 Gender: Male Attending MD: Keven Arreaga DO Procedure: Upper GI endoscopy Providers: Keven Arreaga DO Referring MD: Milla Meeks Indications: Place PEG because patient is unable to eat due to stroke (CVA) Medicines: Monitored Anesthesia Care Complications: No immediate complications. Estimated Blood Loss: Estimated blood loss: none. Procedure: Pre-Anesthesia Assessment: - Prior to the procedure, a History and Physical was performed, and patient medications and allergies were reviewed. The patient's tolerance of previous anesthesia was also reviewed. The risks and benefits of the procedure and the sedation options and risks were discussed with the patient. All questions were answered, and informed consent was obtained. Prior Anticoagulants: The patient last took heparin 1 day and Plavix (clopidogrel) 1 day prior to the procedure. ASA Grade Assessment: IV - A patient with severe systemic disease that is a constant threat to life. After reviewing the risks and benefits, the patient was deemed in satisfactory condition to undergo the procedure. After obtaining informed consent, the endoscope was passed under direct vision. Throughout the procedure, the patient's blood pressure, pulse, and oxygen saturations were monitored continuously. The Endoscope was introduced through the mouth, and advanced to the second part of duodenum. The upper GI endoscopy was accomplished without difficulty. The patient tolerated the procedure well. Findings: The esophagus was normal. A small hiatal hernia was present. Localized severe inflammation characterized by erosions and erythema was found in the gastric antrum. Biopsies were taken with a cold forceps for histology. Placement of an externally removable PEG with no T-fasteners was successfully completed. The external bumper was at the 2.0 cm marking on the tube. Localized moderate inflammation characterized by erosions and erythema was found in the entire duodenum. Impression: - Normal esophagus. - Small hiatal hernia. - Gastritis. Biopsied. - Duodenitis. - An externally removable PEG placement was successfully completed. Recommendation: - [facility] to [facility] for [facility] care. - Please follow the post-PEG recommendations including: Nutrition consult for formula and volume, change dressing on top of bumper daily, may use PEG today for meds and water and may use PEG tomorrow for feedings. - Await pathology results. - Use Protonix (pantoprazole) 40 mg via PEG BID. Keven Arreaga, DO 08/31/2021 4:41:08 PM This report has been signed electronically. Note Initiated On: 08/31/2021 3:55 PM Number of Addenda: 0 I attest to the content of the Intraoperative Record and orders documented therein, exceptions below {[id number]}
--- NOTE | 2021-08-31 19:37 | Anesthesiology Progress Note ---
Date of Service August 31, 2021 Anesthesia Post Procedure Vital Signs Vital Signs: Temp Pulse Pulse Resp BP BP Pulse Ox 08/31/21 17:30 36.3 C L 69 20 173/85 H 92 08/31/21 17:13 66 20 156/91 H 94 08/31/21 16:57 70 20 136/90 94 08/31/21 16:42 74 20 117/75 94 08/31/21 14:20 84 08/31/21 12:31 36.5 C 70 16 120/80 91 08/31/21 07:38 64 08/31/21 07:33 36.9 C 72 20 101/59 L 91 08/31/21 03:47 89 08/31/21 03:04 36.7 C 76 18 108/67 94 08/30/21 23:04 36.8 C 92 H 18 123/79 94 Transfer of Care Handoff Completed per policy Notes Mental Status: alert / awake / arousable Patient Amnestic to Procedure: Yes Nausea / Vomiting: adequately controlled Pain: adequately controlled Airway Patency, RR, SpO2: stable & adequate BP & HR: stable & adequate Hydration State: stable & adequate Anesthetic Complications: no major complications apparent
--- NOTE | 2021-08-31 19:40 | Hospitalist Progress Note ---
Date of Service August 31, 2021 Assessment & Plan (1) CVA (cerebral vascular accident): Plan: Cerebral vascular accident (CVA) Outside tPA window. CTA head and neck: Multiple severe stenoses, evidence of prior infarcts. Echocardiogram negative for interatrial shunt. MRI brain: Acute left cerebellar infarct. Severe dysphagia, overt aspiration * Aspirin 81 mg, Plavix 75 mg daily x3 weeks; then stop aspirin, continue Plavix 75 mg daily. Subsequent follow-up with PCP and neurology. * Atorvastatin 80 mg daily * Neurology in agreement with the above plan: Prognosis positive for dysphagia recovery with intensive rehab, based on Dr. Villalba's assessment of brain MRI, exam (see neurology note). * Hemoglobin A1c: 5.2 * Prescription for Holter monitor placement signed in patient's chart; case management notified by unit supervisor Swallowing dysfunction sec to CVA with overt aspiration * PEG tube placed today by gastroenterology; water flushes and meds only tonight; Coresafe feeds can resume tomorrow pending completion of post PEG nutrition consult. Hypertension * Home amlodipine 2.5 mg daily * As needed Lopressor IV push DVT prophylaxis: Heparin SQ every 12 hours FEN/GI: N.p.o. tonight; Coresafe PEG tube feeds following nutrition consult recs. Dispo: MedSurg; * Case management: Initiated discharge planning discussions with patient and his son; patient being referred to [facility]; follow-up with case management regarding placement timeline (2) Slurred speech: (3) Hypertension: (4) Hypothyroidism: (5) History of CVA (cerebrovascular accident): (6) COPD (chronic obstructive pulmonary disease): Admission and Anticipated Discharge Date Admission Date: August 27, 2021 Supervising Physician Co-Signing Physician Notes Resident Physician Supervision Note: I independently interviewed and examined the patient and verified the haney history and physical, reviewed labs and image studies and agree with resident Dr. Vera findings and care plan. Seen this am. denied any chest pain, shortness of breath, fever. o/e - General - comfortable lungs - coarse rhonchi. normal respiratory effort heart - regular rate/rhythm s/p CVA swallowing dysfunction - PEG placement. enteral feeling. follow Subjective Patient is awake and seated upright in his bed this morning. He has no questions or concerns at this time. Patient is tolerating his core safe feeds well. Results & Data Results & Data ([facility]) Vital Signs (Past 12 Hours) Vital Signs Temp Pulse Pulse Resp BP Pulse Ox 08/31/21 17:30 36.3 C L 69 20 173/85 H 92 08/31/21 17:13 66 20 156/91 H 94 08/31/21 16:57 70 20 136/90 94 08/31/21 16:42 74 20 117/75 94 08/31/21 14:20 84 08/31/21 12:31 36.5 C 70 16 120/80 91 08/31/21 07:38 64 Resident Activity Tracking Resident Involvement: Resident Care Provided Care Provided: Adult Hospital Medicine
[2021-08-31] MEDS: METOPROLOL TARTRATE 1 MG/ML VIAL IV PRN (19:49)
[2021-08-31] MEDS: LANSOPRAZOLE 30 MG SOLTAB PEG SCH (19:54)
[2021-08-31] MEDS ORDERED: ACETAMINOPHEN 1,000 MG/100 ML VIAL IV STA (20:31)
[2021-09-01] MEDS: TUBE FEEDING WATER FLUSH GT SCH ×3 (01:30→09:30)
[2021-09-01] MEDS ORDERED: ONDANSETRON INJ 2 MG/ML 2 ML VIAL IV ONE (03:16)
[2021-09-01] MEDS: ATORVASTATIN 40 MG TAB NG SCH (07:44)
[2021-09-01] MEDS: amLODIPine BESYLATE 5 MG TAB NG SCH (07:44)
[2021-09-01] MEDS: ASPIRIN 81 MG CHEW NG SCH (07:44)
[2021-09-01] MEDS: LANSOPRAZOLE 30 MG SOLTAB PEG SCH ×2 (07:44→21:20)
[2021-09-01] MEDS: HEPARIN SOD 5,000 UNIT/0.5 ML VIAL SQ SCH ×2 (07:45→21:20)
[2021-09-01] MEDS: CLOPIDOGREL BISULFATE 75 MG TAB PO SCH (07:45)
[2021-09-01 08:08] LABS: Basophils % (auto) 0.8 %; Eosinophils # (auto) 0.37 K/uL (0-0.5); Eosinophils % (auto) 2.8 %; Hemoglobin 15.9 g/dL (14.0-18.0); Immature Granulocytes # (auto) 0.02 K/uL (0.00-0.02); Immature Granulocytes % (auto) 0.2 %; Lymphocytes # (auto) 1.31 K/uL (1.2-3.4); Mean Corpuscular Hemoglobin 29.8 pg (25-34); Mean Corpuscular Hgb Conc 32.4 g/dL (32-36); Mean Corpuscular Volume 91.8 fL (80-100); Mean Platelet Volume 11.6 fL (7.4-10.4); Monocytes # (auto) 1.45 K/uL (0.11-0.59); Neutrophils % (auto) 75.2 %; Platelet Count 438 K/uL (130-400); RDW Coefficient of Variation 14.1 % (11.5-14.5); RDW Standard Deviation 47.3 fL (36.4-46.3); Red Blood Count 5.34 M/uL (4.7-6.1); White Blood Count 13.15 K/uL (4.8-10.8)
[2021-09-01 08:35] LABS: Calcium 8.9 mg/dl (8.5-10.1); Creatinine Clr Calc Pharmacy 60.4 ml/min; Est GFR (African American) 88.9 ml/min; Est GFR (Non-African American) 76.7 ml/min; Potassium 4.1 mmol/L (3.5-5.1)
--- NOTE | 2021-09-01 08:37 | Hospitalist Progress Note ---
Date of Service September 01, 2021 Assessment & Plan (1) CVA (cerebral vascular accident): Plan: Cerebral vascular accident (CVA) Outside tPA window. CTA head and neck: Multiple severe stenoses, evidence of prior infarcts. Echocardiogram negative for interatrial shunt. MRI brain: Acute left cerebellar infarct. Severe dysphagia, overt aspiration * Aspirin 81 mg, Plavix 75 mg daily x3 weeks; then stop aspirin, continue Plavix 75 mg daily. Subsequent follow-up with PCP and neurology. * Atorvastatin 80 mg daily * Neurology in agreement with the above plan: Prognosis positive for dysphagia recovery with intensive rehab, based on Dr. Villalba's assessment of brain MRI, exam (see neurology note). 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 Continue to monitor Swallowing dysfunction sec to CVA with overt aspiration PEG tube placed yesterday by gastroenterology. Patient tolerated water flushes, p.o. meds yesterday. Patient currently tolerating resumption of tube feeding. * Per prospecting driller feeding recs (in anticipation of discharge to [facility]): bolus feeds 250 mL carton of Fibersource given 6 times daily, +50 mL flushes before and after every feed. Timing of feeds and caloric information per prospecting driller note dated 09/01/2021. Hypertension * Home amlodipine 2.5 mg daily * As needed Lopressor IV push DVT prophylaxis: Heparin SQ every 12 hours FEN/GI: PEG tube feeds, per nutrition recs Dispo: Discharge soon pending bed placement at [facility] (2) Slurred speech: (3) Hypertension: (4) Hypothyroidism: (5) History of CVA (cerebrovascular accident): (6) COPD (chronic obstructive pulmonary disease): Admission and Anticipated Discharge Date Admission Date: August 27, 2021 Supervising Physician Co-Signing Physician Notes Resident Physician Supervision Note: I independently interviewed and examined the patient and verified the haney history and physical, reviewed labs and image studies and agree with resident Dr. Vera findings and care plan. Subjective Per telemetry: Normal sinus rhythm overnight and in the morning. Patient resting in bed comfortably. Patient has no acute concerns or complaints at this time. Review of Systems Review of Systems: All systems reviewed & are unremarkable except as noted in HPI & below Physical Exam Constitutional: WD/WN, vitals as above ENMT: Mouth: + lip abnormality (Right-sided facial droop), + oropharynx abnormality and + drooling Respiratory: + cough Auscultation: + crackles Cardiovascular: RRR, no murmur, no edema Gastrointestinal (Abdomen): normal bowel sounds, soft, nontender, no hepatosplenomegaly Musculoskeletal: no cyanosis or clubbing, extremities motor strength 5/5 Neurologic: Speech / Cognition: + abnormal speech (Dysarthria improved today compared to yesterday. Patient is still drooling); no expressive aphasia, no receptive aphasia and normal cognition Results & Data Results & Data ([facility]) Vital Signs (Past 12 Hours) Vital Signs Temp Pulse Pulse Resp BP Pulse Ox 09/01/21 07:14 77 09/01/21 02:57 36.6 C 79 18 154/88 H 92 08/31/21 23:00 58 L 08/31/21 22:57 36.3 C L 78 20 138/86 93 Resident Activity Tracking Resident Involvement: Resident Care Provided Care Provided: Adult Hospital Medicine
--- NOTE | 2021-09-01 10:02 | Gastroenterology Progress Note ---
Date of Service September 01, 2021 Assessment & Plan (1) Dysphagia: Plan: s/p PEG tube placement -Okay to continue tube feeds at this time -Do not place any materials under the external bumper -Continue with slack cooper recommendations for feeds Admission and Anticipated Discharge Date Admission Date: August 27, 2021 Supervising Physician Co-Signing Physician Notes Agree with Lynette Balderas PAC as above Abd: Soft, NT, ND, +BS, PEG Tube in place no erythema or leakage at PEG site Nursing reports no issues with PEG Tube Recommend Tube feeds as per nutrition and primary team Recommend [employer] services to aid with recovery of swallowing function s/p CVA Subjective Patient is a 71 yo male with stroke who underwent PEG tube placement on 08/31/21. Tube is in place at 4 cm. There is no significant erythema or drainage surrounding tube site. He denies pain. Nothing noted under external bumper. Tube feeds are running at present. Review of Systems Constitutional: no fever and no chills Respiratory: no cough and no dyspnea Cardiovascular: no chest pain Gastrointestinal: no abdominal pain, no nausea and no vomiting Integumentary: no problem reported Neurologic: + abnormal speech and + problem reported (dysphagia) Hematologic / Lymphatic: no problem reported Physical Exam Constitutional: WD/WN, vitals as above Respiratory: normal respiratory effort Cardiovascular: Rate/Rhythm: regular rate and regular rhythm Gastrointestinal (Abdomen): normal bowel sounds, soft, nontender, no hepatosplenomegaly (PEG in place) Musculoskeletal: Head/Neck/Chest: normocephalic Skin: no rashes, warm and dry Neurologic: Speech / Cognition: + abnormal speech Psychiatric: Orientation: alert and oriented x 3 Results & Data Results & Data ([facility]) Vital Signs (Past 12 Hours) Vital Signs Temp Pulse Pulse Resp BP Pulse Ox 09/01/21 07:14 77 09/01/21 02:57 36.6 C 79 18 154/88 H 92 08/31/21 23:00 58 L 08/31/21 22:57 36.3 C L 78 20 138/86 93 PG Care Time/CCT Total # of Minutes Spent Total Time Spent with Patient: Total time spent is greater than 50% in coordination of care (as documented) at patient's floor/unit and/or counseling patient: Coding Level of Care Code 13154 Subseq Hosp Care Lvl 2 Diagnoses Dysphagia R13.10
[2021-09-01] MEDS: FIBERSOURCE HN 1.2 CAL 1000 ML BAG GT SCH ×4 (11:53→21:21)
[2021-09-01] MEDS: TUBE FEEDING WATER FLUSH NG SCH ×3 (15:07→21:21)
[2021-09-01] MEDS: METOPROLOL TARTRATE 1 MG/ML VIAL IV PRN (22:59)
[2021-09-02] MEDS: FIBERSOURCE HN 1.2 CAL 1000 ML BAG GT SCH ×3 (05:53→12:05)
[2021-09-02] MEDS: TUBE FEEDING WATER FLUSH NG SCH ×3 (05:53→12:05)
--- NOTE | 2021-09-02 06:34 | Hospitalist Progress Note ---
Date of Service September 02, 2021 Assessment & Plan (1) CVA (cerebral vascular accident): Plan: Cerebral vascular accident (CVA) Outside tPA window. CTA head and neck: Multiple severe stenoses, evidence of prior infarcts. Echocardiogram negative for interatrial shunt. MRI brain: Acute left cerebellar infarct. Severe dysphagia, overt aspiration * Aspirin 81 mg, Plavix 75 mg daily x3 weeks; then stop aspirin, continue Plavix 75 mg daily. Subsequent follow-up with PCP and neurology. * Atorvastatin 80 mg daily * Neurology in agreement with the above plan: Prognosis positive for dysphagia recovery with intensive rehab, based on Dr. Villalba's assessment of brain MRI, exam (see neurology note). 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 Continue to monitor Swallowing dysfunction sec to CVA with overt aspiration PEG tube placed yesterday by gastroenterology. Patient tolerated water flushes, p.o. meds yesterday. Patient currently tolerating resumption of tube feeding. * Per piano regulator inspector feeding recs (in anticipation of discharge to [facility]): bolus feeds 250 mL carton of Fibersource given 6 times daily, +50 mL flushes before and after every feed. Timing of feeds and caloric information per piano regulator inspector note dated 09/01/2021. Hypertension * Home amlodipine 2.5 mg daily * As needed Lopressor IV push DVT prophylaxis: Heparin SQ every 12 hours FEN/GI: PEG tube feeds, per nutrition recs Dispo: Discharge soon pending bed placement at [facility] (2) Slurred speech: (3) Hypertension: (4) Hypothyroidism: (5) History of CVA (cerebrovascular accident): (6) COPD (chronic obstructive pulmonary disease): Admission and Anticipated Discharge Date Admission Date: August 27, 2021 Subjective Per telemetry: Normal sinus rhythm overnight and this morning. Patient is seated upright in his bed this morning. He reports an improvement in his dysphagia and says that he only used his bedside suction twice today. He reports no abdominal discomfort with his tube feeds. He has no questions or concerns at this time. Review of Systems Review of Systems: All systems reviewed & are unremarkable except as noted in HPI & below Physical Exam Constitutional: WD/WN, vitals as above Respiratory: normal respiratory effort and + cough; no respiratory distress and no labored breathing Auscultation: + crackles and + bronchial breath sounds Cardiovascular: RRR, no murmur, no edema Gastrointestinal (Abdomen): normal bowel sounds, soft, nontender, no hepatosplenomegaly Musculoskeletal: no cyanosis or clubbing, extremities motor strength 5/5 Results & Data Results & Data ([facility]) Vital Signs (Past 12 Hours) Vital Signs Temp Pulse Pulse Resp BP Pulse Ox 09/02/21 02:47 37.1 C 71 20 128/71 92 09/01/21 22:45 36.3 C L 90 18 140/107 H 92 09/01/21 22:00 69 09/01/21 19:28 37.0 C 80 20 165/92 H 91
--- NOTE | 2021-09-02 08:13 | Neurology Progress Note ---
Date of Service September 02, 2021 Assessment & Plan (1) CVA (cerebral vascular accident): (2) Slurred speech: (3) Dysphagia: (4) Weakness: (5) Ataxia due to acute cerebrovascular disease: Plan: Thes patient had the onset of small left cerebellar and left medullary acute infarcts, August 26, resulting in dysarthria, dysphagia, and left devante ataxia. He was noted to have a right facial droop, but this is old from his previous stroke. His symptoms are improving some, although he still has difficulty swallowing and left arm gait ataxia. he has a PEG tube to bypass swallowing. The stroke is likely ischemic and his risk factors include cigarette smoking and hypertension. He has no indication for dyslipidemia or diabetes. This patient has multiple vascular stenoses in the carotid arteries, intracranial circulation, and the vertebrals, particularly on the left (which has an occlusion). The acute stroke is likely due to left vertebral occlusion ( or a partial posterior inferior cerebellar artery occlusion as a branch of the left vertebral) Recommendations: 1. continue clopidogrel 75 milligrams +81 milligram aspirin tablet daily, for a total of 3 weeks. Then discontinue the aspirin and continue clopidogrel. 2. continue PEG tube until he regains his swallowing ability 3. physical, occupational, and speech therapy and consider rehabilitation hospital transfer 4. Increase activity as able. 5. discontinue all cigarette smoking. 6. control blood pressure as you are doing, aiming for a mean arterial pressure of 95-100. 7. Technically, he is a high dose statin candidate, but I would probably stay with regular doses only because his lipid levels were so normal. 8. I can follow as an outpatient if desired otherwise contact me if I can be further assistance. Overall, I spent a total of 25 minutes with this case including review of records, direct evaluation the patient at bedside, and discussion of the case with the patient and RN at bedside, and Dr. Meeks. Admission and Anticipated Discharge Date Admission Date: August 27, 2021 Subjective Overall, the patient feels better over the last few days that he feels he can move his limbs a little better than they could before. He could get to the bathroom he still has trouble with his balance. He has a PEG tube in and still is having trouble handling his secretions. Pressure is 136/72. He is afebrile. Results & Data ([facility]) Vital Signs (Past 12 Hours) Vital Signs Temp Pulse Pulse Resp BP Pulse Ox 09/02/21 07:17 36.5 C 74 16 136/72 92 09/02/21 02:47 37.1 C 71 20 128/71 92 09/01/21 22:45 36.3 C L 90 18 140/107 H 92 09/01/21 22:00 69 Exam (Neuro) Physical Exam: He is awake and alert. Speech has some mild dysarthria but it is much improved compared to admission. Mood and affect are normal appropriate. Thought processes are reasonable to conversation. Extraocular eye muscles are intact without nystagmus. He has the old right facial droop. Left upper extremity is ataxic. The right is not. Strength is 5/5 diffusely in all major muscle groups of the arms and legs both proximally distally. The left leg does not have the ataxia that the left arm does. PG Care Time/CCT Total # of Minutes Spent Total Time Spent with Patient: Total time spent is greater than 50% in coordination of care (as documented) at patient's floor/unit and/or counseling patient: Coding Level of Care Code 79779 Subseq Hosp Care Lvl 2 Diagnoses CVA (cerebral vascular accident) I63.9 Slurred speech R47.81 Dysphagia R13.10 Weakness R53.1 Ataxia due to acute cerebrovascular disease I67.89; R27.0 Time Spent (min) 25
[2021-09-02] MEDS: amLODIPine BESYLATE 5 MG TAB NG SCH (09:07)
[2021-09-02] MEDS: ASPIRIN 81 MG CHEW NG SCH (09:08)
[2021-09-02] MEDS: CLOPIDOGREL BISULFATE 75 MG TAB PO SCH (09:08)
[2021-09-02] MEDS: ATORVASTATIN 40 MG TAB NG SCH (09:08)
[2021-09-02] MEDS: LANSOPRAZOLE 30 MG SOLTAB PEG SCH (09:17)
[2021-09-02] MEDS: HEPARIN SOD 5,000 UNIT/0.5 ML VIAL SQ SCH (09:17)
[2021-09-02] MEDS ORDERED: STROKE PATIENT DISCHARGE STA (13:19)
--- NOTE | 2021-09-02 13:54 | Discharge Summary ---
Date of Service September 02, 2021 Admission HPI Per Admitting Provider 71 yo M with hx multiple CVAs, COPD, BPH who presents to ER with his son for acute onset trouble swallowing and ambulatory dysfunction. last known well was the night of 08/25. States he had trouble swallowing solid food in the AM, but didn't have any issue with soft foods. Also attests to trouble swallowing liquids. Has some pain with swallowing. Also concerned about new trouble walking. Says he's had issues with walking due to foot injuries, but now has trouble moving his legs to walk properly. Denies focal weakness, sensory loss, numbness/tingling. Unsure who he previously saw for neurology. Per med rec, he was taking 500 mg Aspirin daily after his foot surgery, but says he hasn't taken it for about a month. Denies any personal hx of HLD, Dm2. recently dx'd with HTN and started on amlodipine 5 mg today. 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 Admission Exam Per Admitting Provider Constitutional: in NAD, sitting up in bed Face: R facial droop (chronic) Eyes: EOMI, pupils equal and reactive bilaterally, no scleral icterus, no nystagmus Cardiac: RRR, no murmurs, gallops or rubs. Normal S1, S2 Pulm: CTA BL, no wheezes, rhonchi, crackles or rubs, moving air well throughout both lungs Abd: soft, nontender, nondistended, normal bowel sounds, no rebound or guarding Extremities: 2+ peripheral pulses, no edema Neuro: 5/5 strength in upper and lower extremities, no sensory loss, a& ox3 Principal Diagnosis Left acute cerebellar stroke. Dysphagia. Discharge Exam Constitutional WD/WN, vitals as above Respiratory normal respiratory effort; no respiratory distress and no labored breathing Auscultation: + crackles and + wheezes Cardiovascular RRR, no murmur, no edema Gastrointestinal (Abdomen) normal bowel sounds, soft, nontender, no hepatosplenomegaly Musculoskeletal no cyanosis or clubbing, extremities motor strength 5/5 Neurologic Speech / Cognition: + abnormal speech (Dysarthric, though improved from previous exam) Discharge Data Allergies Allergy/AdvReac Type Severity Reaction Status Date / Time carbamazepine Allergy Unknown Unknown Verified 08/26/21 19:24 Consultations 08/26/21 20:25 ED Decision to Admit Stat 08/26/21 23:44 Consult Neurology Routine 08/29/21 12:53 Consult Gastroenterology Routine Procedures Performed Operation Date: 08/30/21 16:45 <No data on this case meets the specified criteria> Operation Date: 08/31/21 15:30 Actual Procedures p EGD Gastric Tube Placement - Keven Graves Case, DO Ordered Studies 08/26/21 19:03 CT angio head w con Stat CT angio neck with con Stat CT head/brain wo con Stat 08/27/21 07:43 MR brain wo/w con Routine Hospital Course (1) CVA (cerebral vascular accident): Cerebral vascular accident (CVA), Swallowing dysfunction -Patient admitted to the hospital outside tPA window. -CTA head and neck: Multiple severe stenoses, evidence of prior infarcts. -Echocardiogram negative for interatrial shunt. -Hemoglobin A1c: 5.2 -MRI brain: Acute left cerebellar infarct. * Started on aspirin 81 mg, Plavix 75 mg daily x3 weeks (stop aspirin after 3 weeks, but continue Plavix 75 mg daily) * Started on atorvastatin 80 mg daily. Atorvastatin dose changed to 40 mg daily. * Started nasogastric Coresafe tube feeds for oropharynx/airway protection; transitioned to PEG tube due to rajesh aspiration on FEES for further protection in anticipation of acute rehab for dysphagia (see below for nutrition assessment recommendations) * Patient discharged to acute rehab at [facility] with PEG tube feeding recommendations (see below). PEG tube feeding options/current regimen (option #3 is patient's current feeding regimen; options 1 and 2 are possible alternates and event option 3 is unfeasible while patient is at [facility]): 1. Continue Fibersource HN or Jevity 1.2 (if [facility] carries CHIC.TV products) @ 20ml/hr to advance as tolerated by 15ml/hr q 4 hr to goal rate of 65 ml/hr x 24hr/day continuous (this option is not ideal for rehab setting) ---OR 2. If intermittent TF desired, then continue to advance TF as tolerated by 15ml/hr q 4 hr to goal rate of 95 ml/hr x 16hr/day to run from [id number] to allow for off time during rehab. TF will provide 1520 ml TV, 1824 kcal, 82 g protein & 1228 ml free H2O. If continuous TF or intermittent TF option preferred, then provide 150 ml free H2O flushes q 6 hr via PEG tube (600 ml H2O flushes, 1828 ml total free H2O/day) ---OR 3. Bolus option: Provide 1 carton of Fibersource HN (250 ml) given 6x/day (0600, 0900, 1200, 1500, 1800, 2100). TF will provide 1500 ml TV, 1800 kcal, 81 g protein & 1212 ml free H2O. Provide 50 ml free H2O flushes before & after each TF bolus (600 ml H2O flush, 1812 ml total free H2O/day). (2) Slurred speech: (3) Hypertension: (4) Hypothyroidism: (5) History of CVA (cerebrovascular accident): (6) COPD (chronic obstructive pulmonary disease): Total Time Total Time Spent Total Time Spent (In Minutes): See attending physician attestation. Discharge Plan Discharge Items Patient Disposition: Transfer Inpatient Rehab Fac Reason For Visit: NEW AMBULATION, SWALLOWING DIFFICULTY, HX STROKES Discharge Diagnosis: Left cerebellar infarct, dysphagia Condition on Discharge: Fair Activity: Per Instructions section Non-emergency contact: Primary Care Provider and Neurologist Call non-emergency contact if: you have any medication questions and your symptoms worsen Follow-up/Referrals: Freddy Huizar MD [Primary Care Provider] - Mauro Villalba MD [Physician] - Diet: Other - See Diet Comment Diet Comment: Patient has PEG tube, with regimented bolus feeding schedule Addtl Attending Provider Instructions: You were admitted to the hospital for an acute stroke with severe dysphagia, or an problem with swallowing. You were treated with medicines to reduce your risk of clotting in the future. You also were evaluated by our neurologists,gastroenterologists and speech therapists during your stay. To protect your airway as you recover, you were fitted with a PEG tube by our GI team and our lpn per diem reviewed your case to ensure your caloric needs were being met. A discharge summary will be sent to your primary care physician to ensure continuity of care. Please bring this discharge summary with you to your next office appointment so that your provider can review it at that time. Follow-up appointments: * Make a follow-up appointment with your PCP within the next week. It is very important that you follow up with them shortly after discharge from the hospital. * Keep all your follow-up appointments as already scheduled. If you cannot make an appointment, notify your provider. Medications: Your medication list has been reviewed and reconciled upon discharge to ensure accuracy and continuity of care. An updated list of all your medications is included with your hospital discharge paperwork. Please review this list closely, and make note of any changes. * We sent a new medication called aspirin to your pharmacy. Take aspirin 81 mg for 21 days. * We sent a new medication called Plavix to your pharmacy. Take Plavix 75 mg for 21 days, then continue taking it every day until you are told to stop. Take your medications as instructed; do not skip a dose of your medicines. Make sure all of your doctors know every medicine you are taking (including gagi-jra-daqlwsa medicines, vitamins, and supplements). Call your primary care provider before taking any new medicines (including pycf-lpj-bbbqlla medicines, vitamins, and supplements), because some of these may interact with your current medications, or may make your symptoms worse. Tell your primary care provider if you cannot afford your medications. CONTACT YOUR PRIMARY CARE PROVIDER if you experience any of the following: * Sudden, one-sided weakness in the arm, leg facial droop * Sudden weakness, dizziness or difficulty speaking * Difficulty following your treatment plan, or difficulty taking medications CALL 911 OR GO TO THE EMERGENCY DEPARTMENT if you experience any of the following: * Sudden, severe abdominal pain or nausea/vomiting * Severe chest pain, or chest pain that radiates (moves) to your jaw or arm * Sudden, severe shortness of breath or difficulty breathing Thank you for allowing us to participate in your care. Addtl Supervisor [employer] Provider Instructions: Brewery Representative PEG tube recommendation (currently doing option 3) 1) Continue Fibersource HN or Jevity 1.2 ( if [facility] carries [employer]IC[employer]TV products) @ 20 ml/hr to advance as tolerated by 15 ml/hr q 4 hr to goal rate of 65 ml/hr x 24 hr/day continuous ( this option is not ideal for rehab setting ) 2) If intermittent TF desired, then continue to advance TF as tolerated by 15 ml/hr q 4 hr to goal rate of 95 ml/hr x 16 hr/day to run from [id number] to allow for off time during rehab. TF will provide 1520 ml TV, 1824 kcal, 82 g protein & 1228 ml free H2O. If continuous TF or intermittent TF option preferred, then provide 150 ml free H2O flushes q 6 hr via PEG tube ( 600 ml H2O flushes, 1828 ml total free H2O/day) 3) If the bolus option is preferred, then provide 1 carton of Fibersource HN (250 ml) given 6x/day (0600, 0900, 1200, 1500, 1800, 2100). TF will provide 1500 ml TV, 1800 kcal, 81 g protein & 1212 ml free H2O. Provide 50 ml free H2O flushes before & after each TF bolus (600 ml H2O flush, 1812 ml total free H2O/day). At this time, option 3 will be trialed & new EN orders written. If pt . does not tolerate bolus TF option, then RD will modify order back to continuous or intermittent option. Pending Studies at Discharge: No Stand-Alone Forms: Medications to Prevent Stroke, My [facility] [place], Smoking Cessation Skilled Items Patient informed of condition?: No DNR: Yes Discharge Level of Care: Acute rehab Communicable Disease: No Discharge Prognosis: Improving Lines: None Urinary Catheter: No Medications and DC Order Prescriptions: New clopidogrel [Plavix] 75 mg tablet 75 mg PO DAILY 30 Days Qty: 30 RF: 0 aspirin 81 mg tablet,delayed release (DR/EC) 81 mg PO DAILY 30 Days Qty: 30 RF: 0 atorvastatin 40 mg tablet 40 mg PO DAILY 30 Days Qty: 30 RF: 0 Continued amlodipine 5 mg tablet 5 mg PO DAILY Qty: 30 RF: 2 Discontinued aspirin 500 mg Tablet 500 mg PO BID PRN (Reason: pt discretion) RF: 0 Discharge Orders: Discharge Order (Routine); Ordered 09/02/21 Ordered By: Rishabh Mcgee/Other Patient Handouts: Stroke: Tips for Swallowing Admission Data Admit Date/Time: 08/27/21 16:20 Attending Provider: Milla Meeks Admit Provider: Briseida Donohue Primary Care Provider: Freddy Huizar Other Providers: Migel Pedersen ; Mauro Villalba ; Rishabh Vera ; [facility] Other Interventions: Discharge Summary Assessment (RN) Last Done: 09/02/21 14:47 Supervising Physician Co-Signing Physician Notes Resident Physician Supervision Note: I independently interviewed and examined the patient and verified the haney history and physical, reviewed labs and image studies and agree with resident Dr. Vera findings and care plan. Resident Activity Tracking Resident Involvement: Resident Care Provided Care Provided: Adult Hospital Medicine
== END 2021-09-02 15:17 | DRG 65 ==
LOC: EDINP 18:43 → ED 18:43 → SUATTDRO 21:06 → 2N 08-27 21:49

== ENCOUNTER 2025-07-14 11:05 | Inpatient (IN) ==
[2025-07-14 11:45] LABS: Hematocrit (blood only) 45.8 % (42.0-52.0); Hemoglobin 15.6 g/dl (14.0-18.0); Mean Corpuscular Hemoglobin 30.9 pg (25.0-34.0); Mean Corpuscular Volume 90.7 fL (80.0-100.0); Platelet Count 441 K/uL (130-400); RDW Standard Deviation 50.9 fL (36.4-46.3); Red Blood Count 5.05 M/uL (4.70-6.10); White Blood Count 25.88 K/ul (4.8-10.8)
--- NOTE | 2025-07-14 11:45 | XRay Report ---
XR chest 1V portable CLINICAL HISTORY: weakness COMPARISON STUDY: 05/29/2025 FINDINGS: Heart size and pulmonary vasculature are normal. There is mild elevation of the left hemidi aphragm. There is interval mild stranding opacity at the left lung base. No other consolidation or pl eural effusion seen. No pneumothorax. IMPRESSION: Atelectasis versus early pneumonia left lung base. ACT 112: Negative or not required by law. Electronically signed by: Lico Siddiqui M.D. 07/14/2025 11:44 AM
--- NOTE | 2025-07-14 11:49 | Emergency Department Note ---
Impression & Plan Pneumonia, Acute hypoxic respiratory failure, UTI (urinary tract infection) ED Provider Note NAME: ELENA MILES AGE: 75 SEX: M : 1950 ARRIVES VIA: Ambulance INFORMANT: Patient, ED PROVIDER(S): Samuel Gatica MD CHIEF COMPLAINT: Weakness, unsteady HPI: This is a 75-year-old male presenting for weakness, being unsteady. Patient has limited history but otherwise states he feels more weak. He states he was unable to get out of bed today. EMS went to the house and reported patient had strokelike 2 years ago and has had amatory dysfunction. When he gets UTIs he sometimes becomes slightly more confused and otherwise has difficulty ambulating. He has been noted to have thick mucus when coughing up. ROS: See above HPI for pertinent positives & negatives. A total of 10 systems reviewed and were otherwise negative. PAST MEDICAL HISTORY: See Below PAST SURGICAL HISTORY: See Below FAMILY HISTORY: See Below SOCIAL HISTORY: See Below HOME MEDICATIONS: See Below ALLERGIES: See Below VITALS: See Below PHYSICAL EXAMINATION: General: resting comfortably in no acute distress Head: Normocephalic and atraumatic Eyes: Normal inspection, extraocular muscles intact Ear, nose, throat: Normal external exam Neck: Normal range of motion Respiratory: lungs clear to auscultation bilaterally Cardiovascular: Regular rate/rhythm, no murmur GI: soft, nontender, no guarding or rebound Extremities: nontender, moves all extremities Neuro: The patient awake and alert, appropriately conversive, no focal deficits, symmetric faces Skin: Warm, dry, and intact MEDICAL DECISION MAKING: This is a 75-year-old male present for weakness, unsteadiness. Patient represents a well however he has not hypoxia. He has a cough which sounds junky and coarse. Will evaluate for pneumonia, UTI sepsis - Blood work reveals a leukocytosis to 25.88. No significant electrolyte disturbances -ECG independently interpreted by me with normal sinus rhythm, rate of 72, left axis deviation, normal [place], normal QRS, normal QTc, no ST segment elevations consistent with STEMI criteria -Chest x-ray reveals left lung atelectasis versus early pneumonia. With patient's hypoxia, leukocytosis, confusion, will start antibiotics and admit. Patient is a significant smoker as well. Patient started on ceftriaxone azithromycin IV - Urinalysis also showed signs of UTI -Care shows Dr. Lai for admission Differential diagnosis: UTI, pneumonia, sepsis, COPD Independent History obtained from: EMS Diagnostics interpreted by me: ECG: See above Cardiac Monitoring: An order was placed for continuous cardiac monitoring. The monitor shows a rate of 70 with sinus Past Med/Surg History Problem List (Updated 07/14/25 @ 16:15 by Samuel Gatica MD) UTI (urinary tract infection) (Acute) Acute hypoxic respiratory failure (Acute) Pneumonia (Acute) History of CVA (cerebrovascular accident) Essential hypertension COPD (chronic obstructive pulmonary disease) Metabolic encephalopathy Acute respiratory failure with hypoxia Fall (Acute) Pneumonia (Acute) Leukocytosis (Acute) Weakness (Acute) Hypotension (Acute) Left rib fracture Leukocytosis (Acute) PEG (percutaneous endoscopic gastrostomy) adjustment/replacement/removal Anxiety Chronic low back pain Insomnia Erectile dysfunction Pre-diabetes Sinusitis Weakness (Acute) Stroke Dysphagia resolved--no issues now Ataxia due to acute cerebrovascular disease H. pylori infection Trigeminal neuralgia hx of surgery 20yrs ago CVA (cerebral vascular accident) 08/2021--denies weakness--on plavix--no neurologist Duodenal ulcer Medical History Hypomagnesemia Hypokalemia Generalized weakness History of CVA (cerebrovascular accident) Slurred speech Hyperlipidemia BPH (benign prostatic hyperplasia) Hypertension On anticoagulant therapy plavix daily d/t CVA Hearing deficit Transient ischemic attack (TIA) pt states he had mild ones prior to CVA in 08/2021 Hypothyroidism Hypertension History of CVA (cerebrovascular accident) COPD (chronic obstructive pulmonary disease) Surgical History S/P percutaneous endoscopic gastrostomy (PEG) tube placement (~08/2021) History of appendectomy History of tooth extraction H/O inguinal hernia repair Family History Sister Breast cancer Sister Breast cancer Other No family history of adverse response to anesthesia Denies family history of Ovarian cancer Prostate cancer Crohn's disease Myocardial infarction Colorectal cancer Ulcerative colitis Social History Smoking Status: Current every day smoker Tobacco Type: Cigarettes Age Started Using Tobacco: 7; packs per day: 1; Cigarettes Per Day: 15; Second Hand Exposure: No; Do You Dip or Chew Tobacco: No; Hx Alcohol Use: No Hx Substance Use: No Preferred Language: Emirati Communication Ability: Effective Visual Impairment: No Limitations Hearing Ability: Use of Hearing Aid Account Representative Required: No Beliefs That Will Affect Care: None marital status: Current Living Situation: Spouse current occupational status: employed current occupation: works at [employer] doing [employer] work Feels Safe at Home: Yes Childhood Exposure to Second-Hand Smoke: Yes Diet: regular Dental Care, Regularly: No Physical Activity Frequency: 3-4 Times per Week Seatbelt Use: always Sunscreen Use: No Assistive Devices: Cane and Hearing Aid - Left Allergies Allergies Allergy/AdvReac Type Severity Reaction Status Date / Time carbamazepine Allergy Intermediate rash, Verified 05/22/25 14:20 lightheaded Home Meds Previous Rx's Medication Instructions Recorded amlodipine 5 mg tablet 5 mg PO QAM #90 tabs 10/06/24 atorvastatin 40 mg tablet 40 mg PO QAM #90 tabs 10/06/24 clopidogrel 75 mg tablet (Plavix) 75 mg PO QAM #90 tabs 10/06/24 Results & Data (ED) Vital Signs Vital Signs - 24 hr 07/14/25 10:50 07/14/25 11:15 07/14/25 11:15 Temperature 36.9 C Temperature Source Oral Pulse Rate 76 Pulse Rate from SpO2 Sensor Pulse Rhythm Regular Pulse Strength Normal Respiratory Rate 16 Respiratory Effort / Characteristics Non-Labored Spontaneous Respiratory Depth Normal Respiratory Pattern Regular Blood Pressure 124/68 Blood Pressure Mean 86 Pulse Oximetry 90 86 L 86 L Oxygen Delivery Method Room Air Room Air Room Air Oxygen Flow Rate Sepsis Recent Fever Within 48 Hours No Sepsis New/Unexplained Change in Mental Status No Sepsis Action Taken by Nursing No Action Required Oxygen Flow Rate - Titration 2 Pulse Oximetry Post Tiitration 94 07/14/25 11:20 07/14/25 12:30 Temperature Temperature Source Pulse Rate 78 68 Pulse Rate from SpO2 Sensor 68 Pulse Rhythm Pulse Strength Respiratory Rate 21 Respiratory Effort / Characteristics Respiratory Depth Respiratory Pattern Blood Pressure 126/65 Blood Pressure Mean 85 Pulse Oximetry 94 Oxygen Delivery Method Nasal Cannula Oxygen Flow Rate 2 Sepsis Recent Fever Within 48 Hours Sepsis New/Unexplained Change in Mental Status Sepsis Action Taken by Nursing Oxygen Flow Rate - Titration Pulse Oximetry Post Tiitration Laboratory Data 07/14/25 11:23 07/14/25 11:23 Lab Results 07/14/25 Range/Units 11:23 WBC 25.88 H (4.8-10.8) K/ul RBC 5.05 (4.70-6.10) M/uL Hgb 15.6 (14.0-18.0) g/dl Hct 45.8 (42.0-52.0) % MCV 90.7 (80.0-100.0) fL MCH 30.9 (25.0-34.0) pg MCHC 34.1 (32.0-36.0) g/dL RDW Std Deviation 50.9 H (36.4-46.3) fL RDW Coeff of Heidi 15.3 H (11.5-14.5) % Plt Count 441 H (130-400) K/uL MPV 10.8 (9.4-12.4) fL Immature Gran % (Auto) 2.1 % Neut % (Auto) 82.9 % Lymph % (Auto) 3.6 % [place] % (Auto) 10.3 % Eos % (Auto) 0.5 % Baso % (Auto) 0.6 % Neut # (Auto) 21.48 H (1.40-6.50) K/uL Lymph # (Auto) 0.92 L (1.20-3.40) K/uL [place] # (Auto) 2.66 H (0.11-0.59) K/uL Eos # (Auto) 0.12 (0.00-0.50) K/uL Baso # (Auto) 0.16 (0.00-0.20) K/uL Immature Gran # (Auto) 0.54 H (0.01-0.20) K/uL Polychromasia 1+ Ovalocytes 1+ Echinocytes 1+ Acanthocytes (Spur) 1+ Sodium 140 (136-145) mmol/L Potassium 3.6 (3.5-5.1) mmol/L Chloride 104 (98-107) mmol/L Carbon Dioxide 28 (21-32) mmol/L Anion Gap 8 (3-11) BUN 24 H (6-23) mg/dl Creatinine 0.91 (0.6-1.4) mg/dl Est Cr Clr Drug Dosing 58.0 ml/min eGFR 87.35 BUN/Creatinine Ratio 26.4 H (10-20) Glucose 114 H (70-99(Fasting)) mg/dl Calcium 8.6 (8.6-10.3) mg/dl Total Bilirubin 2.1 H (0.2-1.0) mg/dl AST 19 (13-39) U/L ALT 14 (7-52) U/L Alkaline Phosphatase 106 H (34-104) U/L Total Protein 6.5 (6.0-8.3) gm/dl Albumin 3.6 (3.4-5.0) gm/dl Globulin 2.9 (2.5-4.0) gm/dl Albumin/Globulin Ratio 1.2 (0.9-2) TSH 1.367 (0.300-4.500) uIu/ml Administered Medications Albuterol (Albut/Ipratrop 3mg/0.5mg Neb 3 Ml Vial) 3 ml NEB TID SATINDER; Protocol Stop: 08/13/25 14:04 Last Admin: 07/14/25 14:23 Dose: 3 ml Documented By: TDM Discontinued Medications Ceftriaxone Sodium (Rocephin) 2,000 mg in 50 mls @ 100 mls/hr IV NOW STA Stop: 07/14/25 12:20 Last Infusion: 07/14/25 12:54 Dose: Infused Documented By: Admin: 07/14/25 12:16 Dose: 100 mls/hr Documented By: TDM Azithromycin (Zithromax) 500 mg in 255 mls @ 127.5 mls/hr IV NOW ONE; Protocol Stop: 07/14/25 13:50 Last Infusion: 07/14/25 15:09 Dose: Infused Documented By: Admin: 07/14/25 12:47 Dose: 127.5 mls/hr Documented By: TDM Imaging Data Radiologist's Impression: Chest X-Ray 07/14/25 11:15 XR chest 1V portable CLINICAL HISTORY: weakness COMPARISON STUDY: 05/29/2025 FINDINGS: Heart size and pulmonary vasculature are normal. There is mild elevation of the left hemidiaphragm. There is interval mild stranding opacity at the left lung base. No other consolidation or pleural effusion seen. No pneumothorax. IMPRESSION: Atelectasis versus early pneumonia left lung base. ACT 112: Negative or not required by law. Electronically signed by: Lico Siddiqui M.D. 07/14/2025 11:44 AM Discharge Plan Visit Data Chief Complaint: Weakness ED Provider: Samuel Gatica Discharge Problem: Pneumonia, Acute hypoxic respiratory failure, UTI (urinary tract infection) Patient Disposition: Admitted As Inpatient Condition: Fair Discharge Instructions Interventions: ED Discharge Assessment Last Done: 07/14/25 14:05 Discharge Problem: Pneumonia Qualifiers: Pneumonia type: due to unspecified organism Laterality: left Lung location: l ower lobe of lung Qualified Code(s): J18.9 - Pneumonia, unspecified organism UTI (urinary tract infection) Qualifiers: Urinary tract infection type: acute cystitis Hematuria presence: without hematuria Qualified Code(s): N30.00 - Acute cystitis without hematuria
[2025-07-14 12:02] LABS: Alanine Aminotransferase 14.0 U/L (7-52); Albumin Globulin Ratio 1.2 (0.9-2); Albumin Level 3.6 gm/dl (3.4-5.0); Alkaline Phosphatase 106.0 U/L (34-104); Anion Gap 8.0 (3-11); Bilirubin,Total 2.1 mg/dl (0.2-1.0); Blood Urea Nitrogen 24.0 mg/dl (6-23); Calcium 8.6 mg/dl (8.6-10.3); Carbon Dioxide 28.0 mmol/L (21-32); Chloride 104.0 mmol/L (98-107); Creatinine Clr Calc Pharmacy 58.0 ml/min; Globulin 2.9 gm/dl (2.5-4.0); Glucose 114.0 mg/dl (70-99(Fasting)); Potassium 3.6 mmol/L (3.5-5.1); Sodium 140.0 mmol/L (136-145); Total Protein 6.5 gm/dl (6.0-8.3)
[2025-07-14 12:08] LABS: Acanthocytes 1+; Immature Granulocytes # (auto) 0.54 K/uL (0.01-0.20); Immature Granulocytes % (auto) 2.1 %; Ovalocytes 1+; Polychromasia 1+
[2025-07-14 12:16] LABS: Thyroid Stimulating Hormone 1.367 uIu/ml (0.300-4.500)
[2025-07-14] MEDS: cefTRIAXone SODIUM 2,000 MG/50 ML BAG IV STA (12:16)
[2025-07-14] MEDS: AZITHROMYCIN 500 MG/255 ML BAG IV ONE (12:47)
--- NOTE | 2025-07-14 13:34 | History & Physical Report ---
Date of Service July 14, 2025 Assessment & Plan (1) Pneumonia: Plan: Community-acquired. Left lower lobe. Obtain sputum for culture and sensitivities. Continue intravenous Rocephin and azithromycin, day 1 (2) Acute respiratory failure with hypoxia: Plan: Supplemental oxygen per nasal cannula to maintain saturation greater than 90%. Wean off as tolerated (3) Metabolic encephalopathy: Plan: Treat underlying pneumonia. Supportive care (4) COPD (chronic obstructive pulmonary disease): Plan: Currently stable. Nebulizer treatments (5) Essential hypertension: Plan: Stable. Continue amlodipine (6) History of CVA (cerebrovascular accident): Plan: Stable. Continue statin and Plavix Plan Hopeful discharge back to home within the next 2 to 3 days History of Present Illness Chief Complaint: Altered mental status, dyspnea on exertion, productive cough Primary Care Provider: Freddy Huizar MD 75-year-old male smoker with COPD who has had 2 days of weakness, productive cough, and altered mental status. He presents to the ED for evaluation. Chest x-ray reveals left lower lobe infiltrate consistent with pneumonia. White count is elevated at 25,800. He is mildly hypoxic on room air. He appears to have a left lower lobe pneumonia in addition to metabolic encephalopathy. He is currently wearing oxygen and already has received Rocephin and azithromycin in the ED. He is admitted for further evaluation and treatment. He denies hemoptysis. Allergies Allergy/AdvReac Type Severity Reaction Status Date / Time carbamazepine Allergy Intermediate rash, Verified 05/22/25 14:20 lightheaded Home Medications Medication Instructions Recorded Confirmed Type amlodipine 5 mg tablet 5 mg PO QAM #90 tabs 10/06/24 07/14/25 Rx atorvastatin 40 mg tablet 40 mg PO QAM #90 tabs 10/06/24 07/14/25 Rx clopidogrel 75 mg tablet (Plavix) 75 mg PO QAM #90 tabs 10/06/24 07/14/25 Rx Past Med/Surg History Problem List (Updated 07/14/25 @ 13:32 by Ben Lai MD) History of CVA (cerebrovascular accident) Essential hypertension COPD (chronic obstructive pulmonary disease) Metabolic encephalopathy Acute respiratory failure with hypoxia Fall (Acute) Pneumonia (Acute) Leukocytosis (Acute) Weakness (Acute) Hypotension (Acute) Left rib fracture Leukocytosis (Acute) PEG (percutaneous endoscopic gastrostomy) adjustment/replacement/removal Anxiety Chronic low back pain Insomnia Erectile dysfunction Pre-diabetes Sinusitis Weakness (Acute) Stroke Dysphagia resolved--no issues now Ataxia due to acute cerebrovascular disease H. pylori infection Trigeminal neuralgia hx of surgery 20yrs ago CVA (cerebral vascular accident) 08/2021--denies weakness--on plavix--no neurologist Duodenal ulcer Medical History Hypomagnesemia Hypokalemia Generalized weakness History of CVA (cerebrovascular accident) Slurred speech Hyperlipidemia BPH (benign prostatic hyperplasia) Hypertension On anticoagulant therapy plavix daily d/t CVA Hearing deficit Transient ischemic attack (TIA) pt states he had mild ones prior to CVA in 08/2021 Hypothyroidism Hypertension History of CVA (cerebrovascular accident) COPD (chronic obstructive pulmonary disease) Surgical History S/P percutaneous endoscopic gastrostomy (PEG) tube placement (~08/2021) History of appendectomy History of tooth extraction H/O inguinal hernia repair Family History Sister Breast cancer Sister Breast cancer Other No family history of adverse response to anesthesia Denies family history of Ovarian cancer Prostate cancer Crohn's disease Myocardial infarction Colorectal cancer Ulcerative colitis Social History Smoking Status: Current every day smoker Tobacco Type: Cigarettes Age Started Using Tobacco: 7; packs per day: 1; Cigarettes Per Day: 15; Second Hand Exposure: No; Do You Dip or Chew Tobacco: No; Hx Alcohol Use: No Hx Substance Use: No Preferred Language: Tajik Communication Ability: Effective Visual Impairment: No Limitations Hearing Ability: Use of Hearing Aid Twisting Frame Fixer Required: No Beliefs That Will Affect Care: None marital status: Current Living Situation: Spouse current occupational status: employed current occupation: works at [employer] doing [employer] work Feels Safe at Home: Yes Childhood Exposure to Second-Hand Smoke: Yes Diet: regular Dental Care, Regularly: No Physical Activity Frequency: 3-4 Times per Week Seatbelt Use: always Sunscreen Use: No Assistive Devices: Cane and Hearing Aid - Left Review of Systems 2 Review of Systems: Constitutionalno fever or chills ENTno blurred vision, no double vision, no epistaxis, no sore throat Respiratoryproductive cough. Dyspnea on exertion. No hemoptysis. Cardiacno palpitations, no chest pain, no syncope Musa nausea, vomiting, diarrhea, melena, hematochezia GUno urinary retention, no urinary incontinence, no dysuria, no hematuria Musculoskeletalno joint pain, no muscle tenderness Skinno bruising, no rashes, no pruritus Neurono isolated weakness, no paresthesia, no weakness Psychno depression, no anxiety Physical Exam 2 Physical Exam: General-awake and alert. Oriented to name and place. No fever, no chills HEENT-head atraumatic and normocephalic, pupils equal and reactive to light, extraocular muscles intact Neck-no lymphadenopathy or thyromegaly, trachea midline Chest-diminished breath sounds bilaterally. Scattered rhonchi. No audible wheezing. No dullness to percussion. Cardiac-regular rate and rhythm, normal S1 and S2 Abdomen-normal bowel sounds, no hepatosplenomegaly Extremities-no cyanosis, clubbing, or edema Neuro-cranial nerves II through XII intact, motor and sensory function within normal limits, strength symmetrical, no focal deficits Psych-normal affect, normal mood Results & Data Results & Data Vital Signs (Past 12 Hours) Vital Signs Temp Pulse Resp BP Pulse Ox O2 Del Method O2 Flow Rate 07/14/25 12:30 68 21 126/65 94 Nasal Cannula 2 07/14/25 11:20 78 07/14/25 11:15 86 L Room Air 07/14/25 11:15 86 L Room Air 07/14/25 10:50 36.9 C 76 16 124/68 90 Room Air Laboratory Results 07/14/25 11:23 07/14/25 11:23 Code Status & VTE Plan Code Status DNR/DNI PG Care Time/CCT Total # of Minutes Spent Total Time Spent with Patient: Total time spent is greater than 50% in coordination of care (as documented) at patient's floor/unit and/or counseling patient: Coding Level of Care Code 46190 INT INP/OBS CARE 3/75MIN Diagnoses Pneumonia J18.9 Laterality: left Lung location: lower lobe of lung Pneumonia type: due to unspecified organism Acute respiratory failure with hypoxia J96.01 Metabolic encephalopathy G93.41 COPD (chronic obstructive pulmonary disease) J44.9 Essential hypertension I10 History of CVA (cerebrovascular accident) Z86.73 (1) Pneumonia Laterality: left Lung location: lower lobe of lung Pneumonia type: due to unspecified organism Qualified Code(s): J18.9 - Pneumonia, unspecified organism
[2025-07-14 13:50] LABS: Appearance Urine Cloudy (Clear); Bacteria Urine Automated 4+ (None Seen); Cast Urine Automated 0-2 /lpf (0-2); Epithelial Cell Urine Auto 0-2 /hpf (0-2); Glucose Urine UA Negative (Negative); WBC Urine Automated >50 /hpf (0-5)
[2025-07-14] MEDS ORDERED: ONDANSETRON INJ 2 MG/ML 2 ML VIAL IV PRN (14:05)
[2025-07-14] MEDS ORDERED: ACETAMINOPHEN 325 MG TAB PO PRN (14:05)
[2025-07-14] MEDS: ALBUT/IPRATROP 3MG/0.5MG NEB 3 ML VIAL NEB SCH (14:23)
--- NOTE | 2025-07-14 15:18 | Electrocardiogram Report ---
Test Reason : Blood Pressure : */* mmHG Vent. Rate : 72 BPM Atrial Rate : 72 BPM P-R Int : 150 ms QRS Dur : 98 ms QT Int : 422 ms P-R-T Axes : 50 -59 14 degrees QTcB Int : 462 ms Normal sinus rhythm Left axis deviation possible Inferior-posterior infarct (cited on or before 24-Apr-2025) Abnormal ECG When compared with ECG of 29-May-2025 09:20, Nonspecific T wave abnormality now evident in Anterior leads Confirmed by Freddy Thorne ([id number]) on 07/14/2025 3:18:07 PM Referred By: Confirmed By: Freddy Thorne
[2025-07-14] MEDS: CEFEPIME 2000MG 2,000 MG/20 ML SYR IV SCH (18:20)
[2025-07-14] MEDS: HEPARIN SOD 5,000 UNIT/0.5 ML VIAL SQ SCH (21:26)
[2025-07-15 08:40] LABS: Hematocrit (blood only) 42.7 % (42.0-52.0); Hemoglobin 14.3 g/dl (14.0-18.0); Immature Granulocytes # (auto) 0.19 K/uL (0.01-0.20); Immature Granulocytes % (auto) 1.0 %; Mean Corpuscular Hemoglobin 30.5 pg (25.0-34.0); Mean Corpuscular Volume 91.0 fL (80.0-100.0); Platelet Count 435 K/uL (130-400); RDW Standard Deviation 50.4 fL (36.4-46.3); Red Blood Count 4.69 M/uL (4.70-6.10); White Blood Count 19.81 K/ul (4.8-10.8)
[2025-07-15 09:13] LABS: Anion Gap 10.0 (3-11); Blood Urea Nitrogen 25.0 mg/dl (6-23); Calcium 8.4 mg/dl (8.6-10.3); Carbon Dioxide 25.0 mmol/L (21-32); Chloride 105.0 mmol/L (98-107); Creatinine Clr Calc Pharmacy 60.7 ml/min; Glucose 103.0 mg/dl (70-99(Fasting)); Potassium 3.4 mmol/L (3.5-5.1); Sodium 140.0 mmol/L (136-145)
[2025-07-15] MEDS: CLOPIDOGREL BISULFATE 75 MG TAB PO SCH (09:22)
[2025-07-15] MEDS: ATORVASTATIN 40 MG TAB PO SCH (09:22)
--- NOTE | 2025-07-15 11:54 | Hospitalist Progress Note ---
Date of Service July 15, 2025 Assessment & Plan (1) Pneumonia: Plan: Community-acquired. Left lower lobe. Sputum culture results are pending. Rocephin has been switched over to cefepime, day 2 (2) Acute respiratory failure with hypoxia: Plan: Supplemental oxygen per nasal cannula to maintain saturation greater than 90%. Unfortunately, he is currently on high flow oxygen. Wean off as tolerated (3) UTI (urinary tract infection): Plan: Klebsiella isolated. Currently on cefepime, day 2 (4) Metabolic encephalopathy: Plan: Present on admission. Now resolved (5) COPD (chronic obstructive pulmonary disease): Plan: Currently stable. Nebulizer treatments (6) Essential hypertension: Plan: Stable. Continue amlodipine (7) History of CVA (cerebrovascular accident): Plan: Stable. Continue statin and Plavix Plan The patient is adamant about going home tomorrow, July 16 Admission and Anticipated Discharge Date Admission Date: July 14, 2025 Subjective Alert and oriented. No acute distress. He is currently on high flow oxygen. He is absolutely adamant however about going home tomorrow, July 16. Urine culture growing Klebsiella. He is currently on cefepime, day 2. Will repeat chest x-ray again tomorrow, July 16. Regular diet has been ordered. Review of Systems 2 Review of Systems: Constitutionalno fever or chills ENTno blurred vision, no double vision, no epistaxis, no sore throat Respiratoryproductive cough. Dyspnea on exertion. No hemoptysis. Cardiacno palpitations, no chest pain, no syncope Musa nausea, vomiting, diarrhea, melena, hematochezia GUno urinary retention, no urinary incontinence, no dysuria, no hematuria Musculoskeletalno joint pain, no muscle tenderness Skinno bruising, no rashes, no pruritus Neurono isolated weakness, no paresthesia, no weakness Psychno depression, no anxiety Physical Exam 2 Physical Exam: General-awake and alert. Oriented to name and place. No fever, no chills HEENT-head atraumatic and normocephalic, pupils equal and reactive to light, extraocular muscles intact Neck-no lymphadenopathy or thyromegaly, trachea midline Chest-diminished breath sounds bilaterally. Scattered rhonchi. No audible wheezing. No dullness to percussion. Cardiac-regular rate and rhythm, normal S1 and S2 Abdomen-normal bowel sounds, no hepatosplenomegaly Extremities-no cyanosis, clubbing, or edema Neuro-cranial nerves II through XII intact, motor and sensory function within normal limits, strength symmetrical, no focal deficits Psych-normal affect, normal mood Results & Data Results & Data Vital Signs (Past 12 Hours) Vital Signs Temp Pulse Pulse Resp BP Pulse Ox O2 Del Method 07/15/25 11:36 36.6 C 74 20 127/64 97 High Flow Nasal Cannula 07/15/25 11:11 70 16 98 High Flow Nasal Cannula 07/15/25 10:34 High Flow Nasal Cannula 07/15/25 07:38 74 16 94 High Flow Nasal Cannula 07/15/25 07:36 74 16 94 High Flow Nasal Cannula 07/15/25 07:32 37.3 C 69 20 114/61 98 High Flow Nasal Cannula 07/15/25 07:21 72 07/15/25 03:53 38.1 C H 75 20 118/61 90 High Flow Nasal Cannula 07/15/25 02:17 71 17 92 High Flow Nasal Cannula 07/15/25 00:00 36.5 C 82 20 105/59 L 98 High Flow Nasal Cannula O2 Flow Rate FiO2 07/15/25 11:36 6 07/15/25 11:11 20 70 07/15/25 10:34 20 07/15/25 07:38 20 80 07/15/25 07:36 20 80 07/15/25 07:32 20 07/15/25 07:21 07/15/25 03:53 50 100 07/15/25 02:17 20 80 07/15/25 00:00 50 100 Laboratory Results 07/15/25 07:42 07/15/25 07:42 PG Care Time/CCT Total # of Minutes Spent Total Time Spent with Patient: Total time spent is greater than 50% in coordination of care (as documented) at patient's floor/unit and/or counseling patient: Coding Level of Care Code 10056 SUB INP/OBS CARE 3/50MIN Diagnoses Pneumonia J18.9 Laterality: left Lung location: lower lobe of lung Pneumonia type: due to unspecified organism Acute respiratory failure with hypoxia J96.01 UTI (urinary tract infection) N30.00 Hematuria presence: without hematuria Urinary tract infection type: acute cystitis Metabolic encephalopathy G93.41 COPD (chronic obstructive pulmonary disease) J44.9 Essential hypertension I10 History of CVA (cerebrovascular accident) Z86.73 (1) Pneumonia Laterality: left Lung location: lower lobe of lung Pneumonia type: due to unspecified organism Qualified Code(s): J18.9 - Pneumonia, unspecified organism (3) UTI (urinary tract infection) Hematuria presence: without hematuria Urinary tract infection type: acute cystitis Qualified Code(s): N30.00 - Acute cystitis without hematuria
[2025-07-15] MEDS ORDERED: cefTRIAXone SODIUM 2,000 MG/50 ML BAG IV SCH (12:00)
[2025-07-15] MEDS ORDERED: AZITHROMYCIN 500 MG/255 ML BAG IV SCH (12:00)
--- NOTE | 2025-07-16 07:44 | XRay Report ---
EXAM: XR chest 1V portable CLINICAL HISTORY: pneumonia LLL TECHNIQUE: A radiograph of the chest was acquired. COMPARISON: 07/14/2025 10:35:43 ORTHO RN FINDINGS: The lungs are clear and well-expanded, with no pulmonary infiltrate or pleural effusion. Mild bronchovascular prominence-stable. The cardiomediastinal silhouette is within normal limits. There is no acute osseous abnormality. IMPRESSION: Mild bronchovascular prominence-stable. Resolution of left lower zone opacification. Electronically signed by Grant Florez 07-16-2025 07:44 AM
[2025-07-16 08:16] VITALS: RESP 18
[2025-07-16 09:02] LABS: Hematocrit (blood only) 48.0 % (42.0-52.0); Hemoglobin 15.5 g/dl (14.0-18.0); Immature Granulocytes # (auto) 0.07 K/uL (0.01-0.20); Immature Granulocytes % (auto) 0.6 %; Mean Corpuscular Hemoglobin 29.5 pg (25.0-34.0); Mean Corpuscular Volume 91.3 fL (80.0-100.0); Platelet Count 502 K/uL (130-400); RDW Standard Deviation 50.4 fL (36.4-46.3); Red Blood Count 5.26 M/uL (4.70-6.10); White Blood Count 11.86 K/ul (4.8-10.8)
[2025-07-16 09:21] LABS: Anion Gap 8.0 (3-11); Blood Urea Nitrogen 27.0 mg/dl (6-23); Calcium 8.7 mg/dl (8.6-10.3); Carbon Dioxide 29.0 mmol/L (21-32); Chloride 106.0 mmol/L (98-107); Creatinine Clr Calc Pharmacy 63.6 ml/min; Glucose 104.0 mg/dl (70-99(Fasting)); Potassium 3.7 mmol/L (3.5-5.1); Sodium 143.0 mmol/L (136-145)
--- NOTE | 2025-07-16 11:53 | Discharge Summary ---
Discharge Summary Date of Service July 16, 2025 Principal Dx & Hospital Course #1 = Principal Diagnosis (1) Pneumonia: Community-acquired. Left lower lobe. Sputum culture results are nondiagnostic. Treated while hospitalized with cefepime. Repeat chest x-ray done today, July 16, shows marked improvement. (2) Acute respiratory failure with hypoxia: He is now on room air. He passed his two-step evaluation today, July 16, and does not need home oxygen. (3) UTI (urinary tract infection): Klebsiella isolated. Treated while hospitalized with cefepime. He will continue oral levofloxacin at discharge (4) Metabolic encephalopathy: Present on admission. Now resolved (5) COPD (chronic obstructive pulmonary disease): Currently stable. Nebulizer treatments prn (6) Essential hypertension: Stable. Continue amlodipine (7) History of CVA (cerebrovascular accident): Stable. Continue statin and Plavix Plan Home today, July 16 Admission HPI Per Admitting Provider 75-year-old male smoker with COPD who has had 2 days of weakness, productive cough, and altered mental status. He presents to the ED for evaluation. Chest x-ray reveals left lower lobe infiltrate consistent with pneumonia. White count is elevated at 25,800. He is mildly hypoxic on room air. He appears to have a left lower lobe pneumonia in addition to metabolic encephalopathy. He is currently wearing oxygen and already has received Rocephin and azithromycin in the ED. He is admitted for further evaluation and treatment. He denies hemoptysis. Discharge Exam General-awake and alert. Oriented to name and place. No fever, no chills HEENT-head atraumatic and normocephalic, pupils equal and reactive to light, extraocular muscles intact Neck-no lymphadenopathy or thyromegaly, trachea midline Chest-diminished breath sounds bilaterally. Scattered rhonchi. No audible wheezing. No dullness to percussion. Cardiac-regular rate and rhythm, normal S1 and S2 Abdomen-normal bowel sounds, no hepatosplenomegaly Extremities-no cyanosis, clubbing, or edema Neuro-cranial nerves II through XII intact, motor and sensory function within normal limits, strength symmetrical, no focal deficits Psych-normal affect, normal mood Discharge Plan Discharge Items Patient Disposition: Home - Self-Care Reason For Visit: PNEUMONIA Discharge Diagnosis: Community-acquired pneumonia, transient acute hypoxemic respiratory failure, Klebsiella UTI Condition on Discharge: Good Activity: Resume your previous activity Non-emergency contact: Primary Care Provider Call non-emergency contact if: your symptoms worsen Follow-up/Referrals: Freddy Huizar MD [Primary Care Provider] - 07/28/25 11:00 am Diet: Regular Addtl Attending Provider Instructions: Take levofloxacin daily for 1 more week. A prescription has been sent to [facility] pharmacy in [place]. All other medications remain the same. Follow-up with primary care provider soon as possible Pending Studies at Discharge: No Stand-Alone Forms: My [facility], Smoking Cessation Medications and DC Order Prescriptions: New levofloxacin 500 mg tablet 500 mg PO DAILY 7 Days Qty: 7 0RF Continued amlodipine 5 mg tablet 5 mg PO QAM Qty: 90 3RF atorvastatin 40 mg tablet 40 mg PO QAM Qty: 90 3RF clopidogrel [Plavix] 75 mg tablet 75 mg PO QAM Qty: 90 3RF Discharge Orders: Discharge Order (Routine); Ordered 07/16/25 Ordered By: Ben Lai Admission Data Admit Date/Time: 07/14/25 13:10 Attending Provider: Ben Lai Admit Provider: Ben Lai Primary Care Provider: Freddy Huizar Other Providers: Ben Lai Hospital Stay Data Consultations 07/14/25 12:39 ED Decision to Admit Stat Pending Results Patient Have Any Pending Studies at Discharge: No Discharge Instructions Given to Patient (Per Discharging Provider) Take levofloxacin daily for 1 more week. A prescription has been sent to [facility] pharmacy in [place]. All other medications remain the same. Follow-up with primary care provider soon as possible Total Time Total Time Spent Total Time Spent (In Minutes): 45 minutes. Total time included patient exam, discharge planning, and medication reconciliation. Coding Level of Care Code 95522 INP/OBS DISCH >30 MIN Diagnoses Pneumonia J18.9 Laterality: left Lung location: lower lobe of lung Pneumonia type: due to unspecified organism Acute respiratory failure with hypoxia J96.01 UTI (urinary tract infection) N30.00 Hematuria presence: without hematuria Urinary tract infection type: acute cystitis Metabolic encephalopathy G93.41 COPD (chronic obstructive pulmonary disease) J44.9 Essential hypertension I10 History of CVA (cerebrovascular accident) Z86.73
[2025-07-16 12:37] VITALS: BP 125/64; PULSE 68; TEMP 98.6; O2SAT 91
== END 2025-07-16 15:53 | disposition home or self-care (01) | DRG 193 ==
LOC: ED 11:05 → EDINP 13:10 → 2N 14:05